=== PATIENT | male | born 1945 | race Caucasian/White ===

== ENCOUNTER 2017-08-09 13:43 | Inpatient (IN) | payer MEDICARE, BC ==
[~2017-08-09] VITALS: Ht 188 cm; Wt 105.5 kg
[2017-08-09 16:02] LABS: BASOPHILS ABSOLUTE AUTO 0.03 K/mm3 (0.00-0.23); BASOPHILS PERCENT AUTO 0 % (0-2); EOSINOPHILS ABSOLUTE AUTO 0.06 K/mm3 (0.00-0.68); EOSINOPHILS PERCENT AUTO 1 % (0-6); Hematocrit 39.4 % (37.0-53.0); Hemoglobin 12.6 g/dL (13.5-17.5); IMMATURE GRAN ABSOLUTE AUTO 0.07 K/mm3 (0.00-0.10); IMMATURE GRAN PERCENT AUTO 1 % (0-1); LYMPHOCYTES ABSOLUTE AUTO 2.29 K/mm3 (0.84-5.20); LYMPHOCYTES PERCENT AUTO 21 % (21-46); MONOCYTES ABSOLUTE AUTO 0.61 K/mm3 (0.16-1.47); MONOCYTES PERCENT AUTO 6 % (4-13); Mean Corpuscular HGB 29.1 pg (26.0-34.0); Mean Corpuscular Volume 91 fL (80-100); Mean Platelet Volume 9.8 fL (9.1-12.4); NEUTROPHILS ABSOLUTE AUTO 7.76 K/mm3 (1.96-9.15); NEUTROPHILS PERCENT AUTO 72 % (41-73); Platelet Count 165 K/mm3 (150-400); RDW Coefficient Variation 14.7 % (11.7-14.2); RDW Standard Deviation 49.6 fL (35.1-46.3); Red Blood Cell Count 4.33 M/mm3 (4.30-5.90); White Blood Cell Count 10.82 K/mm3 (4.00-11.30)
[2017-08-09] MEDS ORDERED: RAMI2.5 PO (16:06)
[2017-08-09] MEDS ORDERED: Jantoven6 MG PO (16:06)
[2017-08-09] MEDS ORDERED: GLIP5ER PO (16:06)
[2017-08-09] MEDS ORDERED: Prozac20 MG (16:07)
[2017-08-09] MEDS ORDERED: Zyprexa10 MG PO (16:07)
[2017-08-09] MEDS ORDERED: METF500 PO (16:07)
[2017-08-09] MEDS ORDERED: ATOR80 PO (16:07)
[2017-08-09] MEDS ORDERED: LORA1 PO (16:07)
[2017-08-09] MEDS ORDERED: METO50ER PO (16:08)
[2017-08-09 16:19] LABS: Alanine Aminotransfer (ALT/SGP 27 U/L (12-78); Albumin, Blood 3.3 g/dL (3.4-5.0); Albumin/Globulin Ratio 0.8 (0.8-1.8); Alk Phos 100 U/L (50-136); Anion Gap 4 mmol/L (6-16); Aspartate Aminotrans (AST/SGOT 16 U/L (12-37); Bilirubin, Total 0.5 mg/dL (0.1-1.0); Blood Urea Nitrogen 21 mg/dL (8-24); Bun/Creatinine Ratio 20.4 (12.0-20.0); CO2, Blood 28 mmol/L (21-32); Calcium, Blood 8.7 mg/dL (8.5-10.1); Chloride, Blood 101 mmol/L (98-108); Creatinine, Blood 1.03 mg/dL (0.60-1.20); Glomerular Filtration Rate >60 (60-); Glucose, Blood 116 mg/dL (70-99); Potassium, Blood 4.6 mmol/L (3.5-5.5); Sodium, Blood 133 mmol/L (136-145); Total Protein, Blood 7.3 g/dL (6.4-8.2); Troponin I <0.015 ng/mL (0.000-0.040)
[2017-08-09 16:34] LABS: International Normalized Ratio 2.34
[2017-08-10 06:19] LABS: International Normalized Ratio 2.15; Prothrombin Time Results 22.9 Sec (9.7-11.5)
[2017-08-11 05:02] LABS: BASOPHILS ABSOLUTE AUTO 0.01 K/mm3 (0.00-0.23); BASOPHILS PERCENT AUTO 0 % (0-2); EOSINOPHILS PERCENT AUTO 0 % (0-6); IMMATURE GRAN PERCENT AUTO 1 % (0-1); LYMPHOCYTES ABSOLUTE AUTO 1.17 K/mm3 (0.84-5.20); LYMPHOCYTES PERCENT AUTO 8 % (21-46); MONOCYTES ABSOLUTE AUTO 0.34 K/mm3 (0.16-1.47); MONOCYTES PERCENT AUTO 2 % (4-13); Mean Corpuscular HGB 28.6 pg (26.0-34.0); Mean Corpuscular HGB Conc 31.7 g/dL (31.5-36.5); Mean Corpuscular Volume 90 fL (80-100); Mean Platelet Volume 10.2 fL (9.1-12.4); NEUTROPHILS ABSOLUTE AUTO 13.74 K/mm3 (1.96-9.15); NEUTROPHILS PERCENT AUTO 89 % (41-73); Platelet Count 167 K/mm3 (150-400); RDW Coefficient Variation 15.1 % (11.7-14.2); RDW Standard Deviation 49.1 fL (35.1-46.3); Red Blood Cell Count 4.55 M/mm3 (4.30-5.90); White Blood Cell Count 15.36 K/mm3 (4.00-11.30)
[2017-08-11 05:17] LABS: International Normalized Ratio 1.91; Prothrombin Time Results 20.3 Sec (9.7-11.5)
[2017-08-11 05:21] LABS: Alanine Aminotransfer (ALT/SGP 27 U/L (12-78); Albumin, Blood 3.3 g/dL (3.4-5.0); Albumin/Globulin Ratio 0.8 (0.8-1.8); Alk Phos 92 U/L (50-136); Anion Gap 5 mmol/L (6-16); Aspartate Aminotrans (AST/SGOT 18 U/L (12-37); Bilirubin, Total 0.3 mg/dL (0.1-1.0); Blood Urea Nitrogen 42 mg/dL (8-24); Bun/Creatinine Ratio 34.1 (12.0-20.0); CO2, Blood 28 mmol/L (21-32); Calcium, Blood 8.8 mg/dL (8.5-10.1); Chloride, Blood 101 mmol/L (98-108); Creatinine, Blood 1.23 mg/dL (0.60-1.20); Globulin, Blood 4.1 g/dL (2.2-4.0); Glomerular Filtration Rate >60 (60-); Glucose, Blood 241 mg/dL (70-99); Potassium, Blood 4.7 mmol/L (3.5-5.5); Sodium, Blood 134 mmol/L (136-145); Total Protein, Blood 7.4 g/dL (6.4-8.2)
[2017-08-12 04:40] LABS: BASOPHILS ABSOLUTE AUTO 0.02 K/mm3 (0.00-0.23); BASOPHILS PERCENT AUTO 0 % (0-2); EOSINOPHILS PERCENT AUTO 0 % (0-6); Hematocrit 37.6 % (37.0-53.0); Hemoglobin 11.9 g/dL (13.5-17.5); IMMATURE GRAN ABSOLUTE AUTO 0.12 K/mm3 (0.00-0.10); IMMATURE GRAN PERCENT AUTO 1 % (0-1); LYMPHOCYTES ABSOLUTE AUTO 2.02 K/mm3 (0.84-5.20); LYMPHOCYTES PERCENT AUTO 13 % (21-46); MONOCYTES PERCENT AUTO 7 % (4-13); Mean Corpuscular HGB 28.7 pg (26.0-34.0); Mean Corpuscular HGB Conc 31.6 g/dL (31.5-36.5); Mean Corpuscular Volume 91 fL (80-100); Mean Platelet Volume 9.8 fL (9.1-12.4); NEUTROPHILS PERCENT AUTO 79 % (41-73); Platelet Count 136 K/mm3 (150-400); RDW Coefficient Variation 14.9 % (11.7-14.2); RDW Standard Deviation 49.4 fL (35.1-46.3); Red Blood Cell Count 4.15 M/mm3 (4.30-5.90); White Blood Cell Count 15.36 K/mm3 (4.00-11.30)
[2017-08-12 04:51] LABS: International Normalized Ratio 1.46; Prothrombin Time Results 15.4 Sec (9.7-11.5)
[2017-08-12 04:55] LABS: Bun/Creatinine Ratio 36.6 (12.0-20.0); Calcium, Blood 8.3 mg/dL (8.5-10.1); Creatinine, Blood 1.34 mg/dL (0.60-1.20); Potassium, Blood 4.5 mmol/L (3.5-5.5)
[2017-08-13 04:52] LABS: BASOPHILS ABSOLUTE AUTO 0.02 K/mm3 (0.00-0.23); BASOPHILS PERCENT AUTO 0 % (0-2); EOSINOPHILS ABSOLUTE AUTO 0.05 K/mm3 (0.00-0.68); EOSINOPHILS PERCENT AUTO 0 % (0-6); Hematocrit 40.2 % (37.0-53.0); Hemoglobin 12.6 g/dL (13.5-17.5); IMMATURE GRAN ABSOLUTE AUTO 0.09 K/mm3 (0.00-0.10); IMMATURE GRAN PERCENT AUTO 1 % (0-1); LYMPHOCYTES ABSOLUTE AUTO 3.12 K/mm3 (0.84-5.20); LYMPHOCYTES PERCENT AUTO 28 % (21-46); MONOCYTES ABSOLUTE AUTO 1.03 K/mm3 (0.16-1.47); MONOCYTES PERCENT AUTO 9 % (4-13); Mean Corpuscular HGB 28.8 pg (26.0-34.0); Mean Corpuscular HGB Conc 31.3 g/dL (31.5-36.5); Mean Corpuscular Volume 92 fL (80-100); Mean Platelet Volume 10.1 fL (9.1-12.4); NEUTROPHILS ABSOLUTE AUTO 7.05 K/mm3 (1.96-9.15); NEUTROPHILS PERCENT AUTO 62 % (41-73); Platelet Count 132 K/mm3 (150-400); RDW Coefficient Variation 14.9 % (11.7-14.2); RDW Standard Deviation 50.7 fL (35.1-46.3); Red Blood Cell Count 4.37 M/mm3 (4.30-5.90); White Blood Cell Count 11.36 K/mm3 (4.00-11.30)
[2017-08-13 05:03] LABS: International Normalized Ratio 1.71; Prothrombin Time Results 18.1 Sec (9.7-11.5)
[2017-08-13 05:09] LABS: Albumin, Blood 2.9 g/dL (3.4-5.0); Albumin/Globulin Ratio 0.8 (0.8-1.8); Bilirubin, Total 0.4 mg/dL (0.1-1.0); Bun/Creatinine Ratio 38.7 (12.0-20.0); Calcium, Blood 8.5 mg/dL (8.5-10.1); Creatinine, Blood 1.5 mg/dL (0.60-1.20); Globulin, Blood 3.6 g/dL (2.2-4.0); Potassium, Blood 4.4 mmol/L (3.5-5.5); Total Protein, Blood 6.5 g/dL (6.4-8.2)
[2017-08-14 05:32] LABS: International Normalized Ratio 1.92; Prothrombin Time Results 20.4 Sec (9.7-11.5)
[2017-08-14 05:40] LABS: Bun/Creatinine Ratio 40.9 (12.0-20.0); Calcium, Blood 8.9 mg/dL (8.5-10.1); Creatinine, Blood 1.54 mg/dL (0.60-1.20); Potassium, Blood 4.5 mmol/L (3.5-5.5)
[2017-08-14] MEDS ORDERED: Micro-K10 MEQ PO (09:46)
[2017-08-14] MEDS ORDERED: FURO20 PO (09:46)
[2018-03-11] MEDS ORDERED: Melatonin5 M1 PO (11:58)
[2018-03-11] MEDS ORDERED: PREG100 PO (15:25)
== END 2017-08-14 11:11 | disposition home health service (06) | DRG 291 ==
LOC: ER 13:43 → MEDS 19:34 → ER 20:25 → MEDS 20:30 → ENPENDDIS 08-14 10:00 → MEDS 08-14 11:11
PROVIDERS: Emergency Medicine; Internal Medicine
PROC: 3E0234Z Introduction of Serum, Toxoid and Vaccine into Muscle, Percutaneous Approach (ICD-10-PCS; principal; 2017-08-10)
DX: I50.33 Acute on chronic diastolic (congestive) heart failure (principal); J96.01 Acute respiratory failure with hypoxia; J44.1 Chronic obstructive pulmonary disease with (acute) exacerbation; Z23 Encounter for immunization; E11.9 Type 2 diabetes mellitus without complications; I25.10 Atherosclerotic heart disease of native coronary artery without angina pectoris; E66.9 Obesity, unspecified; G47.33 Obstructive sleep apnea (adult) (pediatric); F17.210 Nicotine dependence, cigarettes, uncomplicated; Z95.1 Presence of aortocoronary bypass graft; I25.2 Old myocardial infarction; Z85.828 Personal history of other malignant neoplasm of skin; Z88.8 Allergy status to other drugs, medicaments and biological substances; Z91.041 Radiographic dye allergy status; Z99.81 Dependence on supplemental oxygen; Z79.01 Long term (current) use of anticoagulants; Z79.84 Long term (current) use of oral hypoglycemic drugs; Z79.899 Other long term (current) drug therapy; Z68.28 Body mass index [BMI] 28.0-28.9, adult
CPT/HCPCS: 36415; 70450; 71046; 80048; 80053; 82947; 83036; 83880; 84484; 85025; 85610; 85730; 93005; 93010; 93306; 94640; 94762; 96374; 96375; 97110; 97116; 97162; 97530; 99285; G0008; G8978; G8979; J1940; J2930; J7626; Q2038

== ENCOUNTER → 2017-08-16 | Outpatient (CLI) | payer MEDICARE, BC ==
[~2017-08-16] MED LIST: ATOR80 PO; FURO20 PO; GLIP5ER PO; Jantoven6 MG PO; LORA1 PO; METF500 PO; METO50ER PO; Melatonin5 M1 PO; Micro-K10 MEQ PO; PREG100 PO; Prozac20 MG; RAMI2.5 PO; Zyprexa10 MG PO
== END | disposition home or self-care (01) ==
LOC: OLS 13:28
DX: R19.7 Diarrhea, unspecified (principal)
CPT/HCPCS: 87493

== ENCOUNTER → 2017-08-23 | Outpatient (CLI) | payer MEDICARE, BC ==
[~2017-08-23] MED LIST changes: -Melatonin5 M1 PO; -PREG100 PO
[2017-08-23 15:25] LABS: International Normalized Ratio 1.4; Prothrombin Time Results 14.7 Sec (9.7-11.5)
== END ==
LOC: LAB HH 14:22
PROVIDERS: Family Medicine
DX: I48.91 Unspecified atrial fibrillation (principal)
CPT/HCPCS: 85610

== ENCOUNTER → 2018-07-29 | Outpatient (CLI) | payer MEDICARE, BC ==
[~2018-07-29] MED LIST changes: +Melatonin5 M1 PO; +PREG100 PO
[2018-07-29 17:15] LABS: BASOPHILS ABSOLUTE AUTO 0.04 K/mm3 (0.00-0.23); BASOPHILS PERCENT AUTO 1 % (0-2); EOSINOPHILS ABSOLUTE AUTO 0.13 K/mm3 (0.00-0.68); EOSINOPHILS PERCENT AUTO 2 % (0-6); Hematocrit 41.3 % (37.0-53.0); Hemoglobin 13.2 g/dL (13.5-17.5); IMMATURE GRAN ABSOLUTE AUTO 0.03 K/mm3 (0.00-0.10); IMMATURE GRAN PERCENT AUTO 0 % (0-1); LYMPHOCYTES ABSOLUTE AUTO 2.62 K/mm3 (0.84-5.20); LYMPHOCYTES PERCENT AUTO 37 % (21-46); MONOCYTES ABSOLUTE AUTO 0.43 K/mm3 (0.16-1.47); MONOCYTES PERCENT AUTO 6 % (4-13); Mean Corpuscular HGB 29.3 pg (26.0-34.0); Mean Corpuscular Volume 92 fL (80-100); Mean Platelet Volume 9.6 fL (9.1-12.4); NEUTROPHILS PERCENT AUTO 55 % (41-73); Platelet Count 163 K/mm3 (150-400); RDW Coefficient Variation 16.5 % (11.7-14.2); RDW Standard Deviation 55.7 fL (35.1-46.3); White Blood Cell Count 7.15 K/mm3 (4.00-11.30)
[2018-07-29 17:33] LABS: Alanine Aminotransfer (ALT/SGP 32 U/L (12-78); Albumin, Blood 3.1 g/dL (3.4-5.0); Albumin/Globulin Ratio 0.8 (0.8-1.8); Alk Phos 171 U/L (50-136); Anion Gap 7 mmol/L (6-16); Aspartate Aminotrans (AST/SGOT 13 U/L (12-37); Bilirubin, Total 0.3 mg/dL (0.1-1.0); Blood Urea Nitrogen 17 mg/dL (8-24); Bun/Creatinine Ratio 20.3 (12.0-20.0); CO2, Blood 27 mmol/L (21-32); Calcium, Blood 8.2 mg/dL (8.5-10.1); Chloride, Blood 100 mmol/L (98-108); Creatinine, Blood 0.84 mg/dL (0.60-1.20); Globulin, Blood 4.1 g/dL (2.2-4.0); Glomerular Filtration Rate >60 (60-); Glucose, Blood 276 mg/dL (70-99); Potassium, Blood 3.5 mmol/L (3.5-5.5); Sodium, Blood 134 mmol/L (136-145); Total Protein, Blood 7.2 g/dL (6.4-8.2)
== END | disposition home or self-care (01) ==
LOC: LAB HH 16:26
PROVIDERS: Family Medicine
DX: S32.002A Unstable burst fracture of unspecified lumbar vertebra, initial encounter for closed fracture (principal); M48.061 Spinal stenosis, lumbar region without neurogenic claudication; E11.65 Type 2 diabetes mellitus with hyperglycemia; Z85.820 Personal history of malignant melanoma of skin
CPT/HCPCS: 80053; 83036; 85025

== ENCOUNTER 2020-07-01 19:28 | Emergency (ER) | payer MEDICARE, BC ==
[~2020-07-01] VITALS: Ht 182.9 cm; Wt 90.7 kg
[~2020-07-01 19:28] MED LIST changes: +BASAGLAR K100 UNIT/1 SC; +DOCU100 PO; +FISH OIL 1,0001 EAC2 PO; +FLAX PO; +FURO40; +Fosamax70 MG PO; +GLIM2 PO; +GLIP10ER PO; +KONSYL0.52 GM PO; +Lipitor80 MG PO; +MELATONIN5 M1 PO; +METO50 PO; +Multiple Vitam1 EAC1 PO; +NOVOLOG FL100 UNIT/3 SC; +Nitrostat0.4 MG SL; +OLAN5 PO; +Omega 3 1,0001 EACH PO; +POTA10T PO; +PREG100; +Prozac40 MG PO; +WARF5 PO
[2020-07-01 20:11] LABS: BASOPHILS ABSOLUTE AUTO 0.04 K/mm3 (0.00-0.23); BASOPHILS PERCENT AUTO 0 % (0-2); EOSINOPHILS ABSOLUTE AUTO 0.09 K/mm3 (0.00-0.68); EOSINOPHILS PERCENT AUTO 1 % (0-6); Hematocrit 40.5 % (37.0-53.0); Hemoglobin 12.8 g/dL (13.5-17.5); IMMATURE GRAN ABSOLUTE AUTO 0.04 K/mm3 (0.00-0.10); IMMATURE GRAN PERCENT AUTO 0 % (0-1); LYMPHOCYTES ABSOLUTE AUTO 3.41 K/mm3 (0.84-5.20); LYMPHOCYTES PERCENT AUTO 30 % (21-46); MONOCYTES PERCENT AUTO 6 % (4-13); Mean Corpuscular HGB 28.7 pg (26.0-34.0); Mean Corpuscular HGB Conc 31.6 g/dL (31.5-36.5); Mean Corpuscular Volume 91 fL (80-100); Mean Platelet Volume 11.1 fL (9.1-12.4); NEUTROPHILS ABSOLUTE AUTO 6.95 K/mm3 (1.96-9.15); NEUTROPHILS PERCENT AUTO 62 % (41-73); Platelet Count 182 K/mm3 (150-400); RDW Coefficient Variation 15.5 % (11.7-14.2); Red Blood Cell Count 4.46 M/mm3 (4.30-5.90); White Blood Cell Count 11.23 K/mm3 (4.00-11.30)
[2020-07-01 20:26] LABS: Alanine Aminotransfer (ALT/SGP 46 U/L (12-78); Albumin, Blood 3.4 g/dL (3.4-5.0); Albumin/Globulin Ratio 0.8 (0.8-1.8); Alk Phos 112 U/L (50-136); Anion Gap 4 mmol/L (6-16); Aspartate Aminotrans (AST/SGOT 41 U/L (12-37); Bilirubin, Total 0.4 mg/dL (0.1-1.0); Blood Urea Nitrogen 14 mg/dL (8-24); Bun/Creatinine Ratio 14.1 (12.0-20.0); CO2, Blood 31 mmol/L (21-32); Calcium, Blood 8.5 mg/dL (8.5-10.1); Chloride, Blood 105 mmol/L (98-108); Creatinine, Blood 0.99 mg/dL (0.60-1.20); Globulin, Blood 4.4 g/dL (2.2-4.0); Glomerular Filtration Rate >60 (60-); Glucose, Blood 61 mg/dL (70-99); Potassium, Blood 3.5 mmol/L (3.5-5.5); Sodium, Blood 140 mmol/L (136-145); Total Protein, Blood 7.8 g/dL (6.4-8.2); Troponin I <0.015 ng/mL (0.000-0.040)
== END 2020-07-01 22:53 | disposition home or self-care (01) ==
LOC: ER 19:28
PROVIDERS: Physician Assistant
DX: I50.9 Heart failure, unspecified (principal); E11.649 Type 2 diabetes mellitus with hypoglycemia without coma; I48.91 Unspecified atrial fibrillation; Z79.4 Long term (current) use of insulin; Z79.899 Other long term (current) drug therapy; Z79.01 Long term (current) use of anticoagulants; Z91.041 Radiographic dye allergy status; Z88.1 Allergy status to other antibiotic agents; Z95.1 Presence of aortocoronary bypass graft; Z87.891 Personal history of nicotine dependence
CPT/HCPCS: 71045; 80053; 82947; 83880; 84484; 85025; 93005; 93010; 99285-25; J1940

== ENCOUNTER 2020-07-14 14:16 | Inpatient (IN) | payer MEDICARE, BC ==
[~2020-07-14] VITALS: Ht 188 cm; Wt 95.8 kg
[2020-07-14 14:45] LABS: BASOPHILS ABSOLUTE AUTO 0.03 K/mm3 (0.00-0.23); BASOPHILS PERCENT AUTO 0 % (0-2); EOSINOPHILS ABSOLUTE AUTO 0.09 K/mm3 (0.00-0.68); EOSINOPHILS PERCENT AUTO 1 % (0-6); Hematocrit 38.7 % (37.0-53.0); Hemoglobin 11.9 g/dL (13.5-17.5); IMMATURE GRAN ABSOLUTE AUTO 0.02 K/mm3 (0.00-0.10); IMMATURE GRAN PERCENT AUTO 0 % (0-1); LYMPHOCYTES ABSOLUTE AUTO 1.32 K/mm3 (0.84-5.20); LYMPHOCYTES PERCENT AUTO 18 % (21-46); MONOCYTES ABSOLUTE AUTO 0.36 K/mm3 (0.16-1.47); MONOCYTES PERCENT AUTO 5 % (4-13); Mean Corpuscular HGB 29.6 pg (26.0-34.0); Mean Corpuscular HGB Conc 30.7 g/dL (31.5-36.5); Mean Corpuscular Volume 96 fL (80-100); Mean Platelet Volume 10.6 fL (9.1-12.4); NEUTROPHILS ABSOLUTE AUTO 5.65 K/mm3 (1.96-9.15); NEUTROPHILS PERCENT AUTO 76 % (41-73); Platelet Count 131 K/mm3 (150-400); RDW Coefficient Variation 15.7 % (11.7-14.2); RDW Standard Deviation 55.3 fL (35.1-46.3); Red Blood Cell Count 4.02 M/mm3 (4.30-5.90); White Blood Cell Count 7.47 K/mm3 (4.00-11.30)
[2020-07-14 14:57] LABS: Alanine Aminotransfer (ALT/SGP 38 U/L (12-78); Albumin, Blood 3.1 g/dL (3.4-5.0); Albumin/Globulin Ratio 0.7 (0.8-1.8); Alk Phos 108 U/L (50-136); Anion Gap 4 mmol/L (6-16); Aspartate Aminotrans (AST/SGOT 20 U/L (12-37); Bilirubin, Total 0.4 mg/dL (0.1-1.0); Blood Urea Nitrogen 15 mg/dL (8-24); Bun/Creatinine Ratio 15.2 (12.0-20.0); CO2, Blood 28 mmol/L (21-32); Calcium, Blood 8.2 mg/dL (8.5-10.1); Chloride, Blood 105 mmol/L (98-108); Creatinine, Blood 0.99 mg/dL (0.60-1.20); Globulin, Blood 4.4 g/dL (2.2-4.0); Glomerular Filtration Rate >60 (60-); Glucose, Blood 202 mg/dL (70-99); Potassium, Blood 4.9 mmol/L (3.5-5.5); Sodium, Blood 137 mmol/L (136-145); Total Protein, Blood 7.5 g/dL (6.4-8.2); Troponin I <0.015 ng/mL (0.000-0.040)
[2020-07-14] MEDS ORDERED: STIOLTO RESPIMAT4 G1 INH (16:21)
[2020-07-14] MEDS ORDERED: METOPROLOL TART50 M2 PO (16:22)
[2020-07-14] MEDS ORDERED: LOSARTAN POTASS50 M1 PO (16:22)
[2020-07-14] MEDS ORDERED: LANTUS SOL100 UNIT/1 SC (16:22)
[2020-07-14] MEDS ORDERED: XARELTO20 M1 PO (16:22)
[2020-07-14] MEDS ORDERED: PROZAC20 M3 PO (16:23)
[2020-07-14] MEDS ORDERED: PREGABALIN100 MG PO (16:23)
[2020-07-14] MEDS ORDERED: LIPITOR80 MG PO (16:23)
[2020-07-14] MEDS ORDERED: KLOR-CON 1010 ME1 PO (16:23)
[2020-07-14] MEDS ORDERED: OLANZAPINE5 M1 PO (16:23)
[2020-07-14] MEDS ORDERED: FUROSEMIDE40 MG PO (16:24)
--- NOTE | 2020-07-14 19:31 | NUR ---
new er admit approx 1815 PT ARRIVE TO VIA GURNEY, ABLE TO TRANSFER TO CHAIR SBA. STATE CONTINUING SHORTNESS OF BREATH HOWEVER MUCH IMPROVED FOLLOWING ER TX-LASIX. LUNGS ARE COARSE, DECREASED, BIOX 94% 3L O2, PT STATE THIS IS HOME DOSE. HR IRREG, 70-80 HX AFIB. KASSI RN WILL PLACE TELE. 2+ BLE EDEMA NOTED. DRSG RLE NOTED, PT STATE HE WENT TO PCP TODAY TO HAVE DRSG CHANGED HOWEVER THEY SENT HIM TO ER D/T SOB. DX CHF, BNP 289. HE VOIDED 350 ML CLEAR YELLOW URINE ON ARRIVAL TO . KASSI RN WILL OBTAIN BED WT. ADA/CARDIAC DIET CLARIFIED w DR LAWSON, DINNER TRAY ORDERED. PHARMACY CALL TO STATE NEED CLARIFICATION ON INSULIN ORDERS, KASSI RN NOTIFIED, WILL CONTACT DR. DALTON @ THIS TIME 125. VSS.
[2020-07-14] MEDS ORDERED: ALBU90OI INH (21:55)
[2020-07-14] MEDS ORDERED: TRIA15CR3 TOP (21:56)
[2020-07-14 22:54] LABS: CPK Creatine Kinase 95 U/L (39-308); Troponin I <0.015 ng/mL (0.000-0.040)
--- NOTE | 2020-07-15 06:10 | NUR ---
PIANO PLAYER SUMMARY NEW ADMIT FROM THE ER JUST PRIOR TO START OF SHIFT. PT ADMITTED FOR CHF EXACERBATION. AAOX4 AND STANDBY ASSIST WHEN OOB. DIURESING WITH IV LASIX, GOOD FLUID OUTPUT NOTED. SOME 2+ PITTING EDEMA IN BLE HOWEVER PT STATES HE CAN ALREADY SEE AND FEEL A BIG IMPROVEMENT IN THE SWELLING. ON 3L O2 VIA NC WHICH PT STATES IS HIS BASELINE DOSE. USING CPAP AT NIGHT WITH 3L BLEED IN. PT STATES HE NORMALLY DOES NOT USE A CPAP AT HOME, JUST NASAL CANULA.PT O2 SATS MOSTLY LOW TO MID 90'S BUT DOES DROP TO HIGH 80'S AT TIMES BECAUSE PT LIKES TO SLEEP SITTING UP WITH HEAD TILTED FORWARD AND CHIN TUCKED TO CHEST. OTHER VSS, WILL CONTINUE TO MONITOR.
[2020-07-15 06:45] LABS: BASOPHILS ABSOLUTE AUTO 0.03 K/mm3 (0.00-0.23); BASOPHILS PERCENT AUTO 0 % (0-2); EOSINOPHILS ABSOLUTE AUTO 0.19 K/mm3 (0.00-0.68); EOSINOPHILS PERCENT AUTO 2 % (0-6); Hematocrit 40.2 % (37.0-53.0); Hemoglobin 12.4 g/dL (13.5-17.5); IMMATURE GRAN ABSOLUTE AUTO 0.03 K/mm3 (0.00-0.10); IMMATURE GRAN PERCENT AUTO 0 % (0-1); LYMPHOCYTES ABSOLUTE AUTO 2.21 K/mm3 (0.84-5.20); LYMPHOCYTES PERCENT AUTO 27 % (21-46); MONOCYTES ABSOLUTE AUTO 0.51 K/mm3 (0.16-1.47); MONOCYTES PERCENT AUTO 6 % (4-13); Mean Corpuscular HGB 29.4 pg (26.0-34.0); Mean Corpuscular HGB Conc 30.8 g/dL (31.5-36.5); Mean Corpuscular Volume 95 fL (80-100); NEUTROPHILS ABSOLUTE AUTO 5.22 K/mm3 (1.96-9.15); NEUTROPHILS PERCENT AUTO 64 % (41-73); Platelet Count 143 K/mm3 (150-400); RDW Coefficient Variation 15.9 % (11.7-14.2); RDW Standard Deviation 55.1 fL (35.1-46.3); Red Blood Cell Count 4.22 M/mm3 (4.30-5.90); White Blood Cell Count 8.19 K/mm3 (4.00-11.30)
[2020-07-15 06:53] LABS: Alanine Aminotransfer (ALT/SGP 35 U/L (12-78); Albumin, Blood 3.3 g/dL (3.4-5.0); Albumin/Globulin Ratio 0.8 (0.8-1.8); Alk Phos 110 U/L (50-136); Anion Gap 2 mmol/L (6-16); Aspartate Aminotrans (AST/SGOT 24 U/L (12-37); Bilirubin, Total 0.5 mg/dL (0.1-1.0); Blood Urea Nitrogen 13 mg/dL (8-24); Bun/Creatinine Ratio 12.9 (12.0-20.0); CO2, Blood 36 mmol/L (21-32); CPK Creatine Kinase 266 U/L (39-308); Calcium, Blood 8.4 mg/dL (8.5-10.1); Chloride, Blood 102 mmol/L (98-108); Creatinine, Blood 1.01 mg/dL (0.60-1.20); Globulin, Blood 4.3 g/dL (2.2-4.0); Glomerular Filtration Rate >60 (60-); Glucose, Blood 78 mg/dL (70-99); Potassium, Blood 4.2 mmol/L (3.5-5.5); Sodium, Blood 140 mmol/L (136-145); Total Protein, Blood 7.6 g/dL (6.4-8.2); Troponin I <0.015 ng/mL (0.000-0.040)
--- NOTE | 2020-07-15 17:26 | NUR ---
SUMMARY PT IS A/O X4, PLEASANT/COOPERATIVE AFFECT. HE IS UP TO BR/CHAIR SBA. DX CHF. HE STATE SHORTNESS OF BREATH CONTINUES TO IMPROVE, STATE FEELING MUCH BETTER TODAY. HE HAS BEEN ON RA T/O DAY, BIOX 93-98%, LUNGS SEEM CLEAR/DECREASED. BLE EDEMA APPROX 2+ CONTINUES, IV LASIX 40MG BIB CONTINUES. HR 70'S, AFIB/TELE, HX CHR AFIB, HE IS ON XARELTO. BP ELEVATED THIS AM HOWEVER IMPROVED T/O DAY, VSS.
[2020-07-16 05:23] LABS: Hematocrit 39.9 % (37.0-53.0); Hemoglobin 12.5 g/dL (13.5-17.5); Mean Corpuscular HGB 29.1 pg (26.0-34.0); Mean Corpuscular HGB Conc 31.3 g/dL (31.5-36.5); Mean Corpuscular Volume 93 fL (80-100); Mean Platelet Volume 10.4 fL (9.1-12.4); Platelet Count 146 K/mm3 (150-400); RDW Coefficient Variation 15.9 % (11.7-14.2); RDW Standard Deviation 53.8 fL (35.1-46.3); Red Blood Cell Count 4.29 M/mm3 (4.30-5.90); White Blood Cell Count 10.17 K/mm3 (4.00-11.30)
[2020-07-16 06:13] LABS: Anion Gap 8 mmol/L (6-16); Blood Urea Nitrogen 21 mg/dL (8-24); Bun/Creatinine Ratio 18.6 (12.0-20.0); CO2, Blood 30 mmol/L (21-32); Calcium, Blood 8.7 mg/dL (8.5-10.1); Chloride, Blood 97 mmol/L (98-108); Creatinine, Blood 1.13 mg/dL (0.60-1.20); Glomerular Filtration Rate >60 (60-); Glucose, Blood 60 mg/dL (70-99); Potassium, Blood 3.5 mmol/L (3.5-5.5); Sodium, Blood 135 mmol/L (136-145)
--- NOTE | 2020-07-16 06:41 | NUR ---
SHIFT SUMMARY PT IS A 74 Y/O MALE, ADMITTED FOR CHF. PT WAS VERY CONFUSED THROUGH THE NIGHT, A&O X SELF ONLY, CONTINUOUSLY PULLING OFF HIS BIOX FINGER PROBE, TELE MONITOR AND O2, AND MOVING MULTIPLE TIMES BETWEEN THE BED AND HIS CHAIR. THIS AM, PT BEGAN WANDERING INTO THE HALLWAYS. EASILY REDIRECTABLE. PT HAS BEEN ON 3L VIA NC, SATTING > 90%. VITAL SIGNS STABLE. TELE SHOWED AFIB IN TH 70S. NO C/O PAIN, NAUSEA OR SOB. PT REFUSED HIS CPAP DURING THE NIGHT. NO OTHER ACUTE CHANGES IN PT CONDITION NOTED. WILL CONTINUE TO MONITOR AND TREAT PER EMAR UNTIL HAND OFF TO DAY SHIFT RN.
--- NOTE | 2020-07-16 08:19 | NUR ---
PT BLOOD GLUCOSE PT IS DROWSY THIS AM BUT AROUSABLE. THIS RN CHECKED PT CBG WHICH WAS NOTED TO BE 59. THIS RN PROVIDED PT WITH 4 OZ OF APPLE JUICE AND PHYSICIAN IS AWARE OF CBG. THIS RN WILL REASSESS PT'S CBG AND CONTINUE TO MONITOR PT STATUS.
--- NOTE | 2020-07-16 08:25 | NUR ---
PT BLOOD GLUCOSE PT IS AO TO SELF BUT STATES HE IS CONFUSED. PT IS NPO STATUS THIS AM FOR PROCEDURE. THIS RN CHECKED PT CBG WHICH WAS NOTED TO BE 63. THIS RN CALLED DR. WEI AND NOTIFIED ABOUT THE CBG. THIS RN RECEIVED ORDERS TO CONTINUE TO MONITOR PT STATUS AND CBG.
--- NOTE | 2020-07-16 18:46 | NUR ---
SHIFT SUMMARY PT IS AOX2-3 THIS TERESA. PT EXHIBITED CONFUSION THIS AM, BUT THAT HAS SINCE CLEARED. PT DENIES PAIN, N/V, SOB. PT IS SBA IN ROOM. PT RIGHT LEG WOUND MEPILIEX IS C/D/I. PT'S SISTER VISITED THIS TERESA. PT IS IN BED, CALL LIGHT IN REACH, LOW POSITION.
--- NOTE | 2020-07-16 19:25 | NUR ---
ASSUMED CARE RECEIVED REPORT FROM KASIA MARTINEZ. PT RESTING COMFORTABLY, IN NO ACUTE DISTRESS. NO ACUTE NEEDS ASSESSED AT THIS TIME. CALL LIGHT, POSSESSIONS IN REACH, BED IN LOW POSITION.CONTINUE TO MONITOR.
--- NOTE | 2020-07-17 01:15 | NUR ---
THIS RN IN PT ROOM, PT REPORTING CHEST PRESSURE LASTING FOR APPROXIMATELY 15-20 MINUTES. VS OBTAINED, WNL. PT REPORTS SOB, STATES IT IMPROVES WHEN HE SITS UP. RESPS E/U. PCU PER DIEM PHYSICAL THERAPIST REPORTING AFIB AVERAGING IN THE 60'S. CONTINUE TO MONITOR.
[2020-07-17 06:49] LABS: Bun/Creatinine Ratio 18.3 (12.0-20.0); Calcium, Blood 8.4 mg/dL (8.5-10.1); Creatinine, Blood 1.26 mg/dL (0.60-1.20); Potassium, Blood 3.7 mmol/L (3.5-5.5)
--- NOTE | 2020-07-17 06:50 | NUR ---
GROUP ACTIVITIES AIDE SUMMARY PT RESTING COMFORTABLY, IN NO ACUTE DISTRESS. NO FURTHER C/O CHEST PRESSURE, STATES IT'S IMPROVED. VS REVIEWED, WNL. O2 SATS STABLE ON 3L/NC. INCREASINGLY CONFUSED THIS AM, REMOVING TELE LEADS; RE-ORIENTED TO SURROUNDINGS. SLEPT ON AND OFF THROUGHOUT NIGHT. NO FURTHER ACUTE CHANGES IN CONDITION NOTED. CALL LIGHT, POSSESSIONS IN REACH, BED IN LOW POSITION WITH ALARMS ON. REPORT GIVEN TO KASIA MARTINEZ.
--- NOTE | 2020-07-17 19:40 | NUR ---
SHIFT SUMMARY PT IS AOX2 TODAY. PT DENIES PAIN, N/V, SOB. PT IS SBA ASSIST FOR TRANSFERS. PT WILL POTENTIALLY DC TOMORROW. PT DID NOT HAVE VISITORS TODAY. PT IS IN BED, CALL LIGHT IN REACH, BED IN LOW POSITION.
--- NOTE | 2020-07-18 04:10 | NUR ---
SHIFT SUMMARY PATIENT HAD NO ACUTE CHANGES OBSERVED. AXOX 2-3 WITH CONFUSION AT TIMES. ONE ASSIST TO BSC. TAKES MEDICATION WHOLE WITH WATER. CBG 179. PIV REMAINS INTACT. FUDGE CANDY MAKER REPORTS A-FIB AVERAGE 52. ON 3L O2 NC. VSS/AFEBRILE. DENIES PAIN, SOB, AND N/V. CALL LIGHT IN REACH. BED IN LOWEST POSITION. WILL CONTINUE TO MONITOR UNTIL DAY SHIFT NURSE ASSUMES CARE.
[2020-07-18 05:34] LABS: Hematocrit 36.3 % (37.0-53.0); Hemoglobin 11.3 g/dL (13.5-17.5); Mean Corpuscular HGB 28.9 pg (26.0-34.0); Mean Corpuscular HGB Conc 31.1 g/dL (31.5-36.5); Mean Corpuscular Volume 93 fL (80-100); Mean Platelet Volume 10.6 fL (9.1-12.4); Platelet Count 110 K/mm3 (150-400); RDW Coefficient Variation 15.9 % (11.7-14.2); RDW Standard Deviation 53.3 fL (35.1-46.3); Red Blood Cell Count 3.91 M/mm3 (4.30-5.90); White Blood Cell Count 6.45 K/mm3 (4.00-11.30)
[2020-07-18 05:55] LABS: Anion Gap 3 mmol/L (6-16); Blood Urea Nitrogen 28 mg/dL (8-24); Bun/Creatinine Ratio 22.4 (12.0-20.0); CO2, Blood 33 mmol/L (21-32); Calcium, Blood 8.2 mg/dL (8.5-10.1); Chloride, Blood 100 mmol/L (98-108); Creatinine, Blood 1.25 mg/dL (0.60-1.20); Glomerular Filtration Rate >60 (60-); Glucose, Blood 121 mg/dL (70-99); Potassium, Blood 4.3 mmol/L (3.5-5.5); Sodium, Blood 136 mmol/L (136-145)
--- NOTE | 2020-07-18 15:08 | NUR ---
NOTIFIED BY [employer] THAT PATIENT IS SUSTAINING HEART RATE IN THE 40'S WITH OCCASIONAL DIPS TO LOW 38. BP 118/44. PATIENT REPORTS DIZZINESS AND BLACK IN FIELD OF VISION, PRIOR TO FALLING ASLEEP IN BED. HE IS NOW ASYMPTOMATIC, NO DIZZINESS, VISION WNL. DR OSBORN NOTIFIED. METOPROLOL DOSE DECREASED FROM 75 MG TO 25 MG BID.
--- NOTE | 2020-07-19 04:47 | NUR ---
SHIFT SUMMARY NO ACUTE CHANGES T/O SHIFT, A&Ox4, CALM AND COOPERATIVE WITH CARE. NO COMPLAINTS OF PAIN OR DISTRESS DURING SHIFT. PT ON 3 L/MIN VIA NC, THIS IS PT BASELINE. SATING 92-96% PER CONT PULSE OX. BRADYCARDIC T/O SHIFT. HELD PM DOSE OF LOPRESSOR PER PARAMETERS. PT SLEPT WELL THROUGH THE NIGHT, CALLED APPROPRIATELY TO USE THE RESTROOM. PT IS CURRENTLY SLEEPING AND APPEARS TO BE IN NO DISTRESS. POSSIBLE DISCHARGE TOMORROW.
[2020-07-19 06:17] LABS: Anion Gap 4 mmol/L (6-16); Blood Urea Nitrogen 30 mg/dL (8-24); Bun/Creatinine Ratio 25.9 (12.0-20.0); CO2, Blood 32 mmol/L (21-32); Calcium, Blood 8.5 mg/dL (8.5-10.1); Chloride, Blood 99 mmol/L (98-108); Creatinine, Blood 1.16 mg/dL (0.60-1.20); Glomerular Filtration Rate >60 (60-); Glucose, Blood 95 mg/dL (70-99); Magnesium, Blood 2.2 mg/dL (1.6-2.4); Potassium, Blood 4.7 mmol/L (3.5-5.5); Sodium, Blood 135 mmol/L (136-145)
[2020-07-19] MEDS ORDERED: SPIR25 PO (13:26)
--- NOTE | 2020-07-19 16:40 | NUR ---
Discharge Summary A/Ox4, pleasant and cooperative with care. SBA c FWW. Patient has been saturating >90% on RA at rest and with minimal activity. Ambulated x 1, tolerated well. Patient has been drinking lots of fluids (see I/O). Reviewed discharge paperwork with sister and patient. It appears blood sugars are not very well managed at home per sister as glucose tends to run 200-300's all the time. Also, patient consumes lots of fat/salt (deli meat, salami, canned goods, fast food, chips) at home. Extensive education provided to limit fat/salt intake, reading nutrition labels for sugar/salt, and low salt diet as well as replacements. Questions were answered and teaching had to be reiterated multiple times. Patient discharge to home with . Paperwork faxed to [facility], meds faxed to [facility]. IV removed, WNL. Personal belongings sent home. Escorted by SQL REPORT WRITER via w/c. Sister (Alecia) mentioned she had lost the previous correction scale and will need one printed. L/M for Alecia to return for staff to print a correction scale for her.
--- NOTE | 2020-07-19 19:04 | NUR ---
-UPDATE- Alecia called to discuss home medication regimen with this RN for approximately 30 minutes to confirm details of what patient is currently taking despite no changes to majority of the meds. These were reviewed once again in detail. Alecia confirmed she will come back tomorrow to sheepskin pickler correction scale for insulin administration.
== END 2020-07-19 15:59 | disposition home health service (06) | DRG 292 ==
LOC: ER 14:16 → MEDS 16:12
PROVIDERS: Emergency Medicine; Internal Medicine; ADMIT Internal Medicine
PROC: 5A09357 Assistance with Respiratory Ventilation, Less than 24 Consecutive Hours, Continuous Positive Airway Pressure (ICD-10-PCS; principal; 2020-07-14)
DX: I11.0 Hypertensive heart disease with heart failure (principal); J96.11 Chronic respiratory failure with hypoxia; I50.33 Acute on chronic diastolic (congestive) heart failure; I16.0 Hypertensive urgency; Z79.01 Long term (current) use of anticoagulants; Z79.4 Long term (current) use of insulin; G47.33 Obstructive sleep apnea (adult) (pediatric); E66.9 Obesity, unspecified; Z95.1 Presence of aortocoronary bypass graft; I25.10 Atherosclerotic heart disease of native coronary artery without angina pectoris; E11.649 Type 2 diabetes mellitus with hypoglycemia without coma; F17.210 Nicotine dependence, cigarettes, uncomplicated; Z68.27 Body mass index [BMI] 27.0-27.9, adult; I48.0 Paroxysmal atrial fibrillation
CPT/HCPCS: 36415; 71045; 80048; 80053; 82550; 82947; 83735; 83880; 84484; 85025; 85027; 93005; 93010; 94640; 94660; 94760; 94762; 96374; 99285-25; A9270; J1650; J1940

== ENCOUNTER 2022-03-26 20:50 | Emergency (ER) | payer MEDICARE, BC ==
[~2022-03-26] VITALS: Ht 188 cm; Wt 90.7 kg
[~2022-03-26 20:50] MED LIST changes: +ALBU90OI INH; +FUROSEMIDE40 MG PO; +KLOR-CON 1010 ME1 PO; +LANTUS SOL100 UNIT/1 SC; +LIPITOR80 MG PO; +LOSARTAN POTASS50 M1 PO; +METOPROLOL TART50 M2 PO; +OLANZAPINE5 M1 PO; +PREGABALIN100 MG PO; +PROZAC20 M3 PO; +SPIR25 PO; +STIOLTO RESPIMAT4 G1 INH; +TRIA15CR3 TOP; +XARELTO20 M1 PO
[2022-03-26 23:29] LABS: BASOPHILS ABSOLUTE AUTO 0.03 K/mm3 (0.00-0.23); BASOPHILS PERCENT AUTO 0 % (0-2); EOSINOPHILS ABSOLUTE AUTO 0.07 K/mm3 (0.00-0.68); EOSINOPHILS PERCENT AUTO 1 % (0-6); Hematocrit 38.1 % (37.0-53.0); Hemoglobin 13.1 g/dL (13.5-17.5); IMMATURE GRAN ABSOLUTE AUTO 0.03 K/mm3 (0.00-0.10); IMMATURE GRAN PERCENT AUTO 0 % (0-1); LYMPHOCYTES ABSOLUTE AUTO 1.22 K/mm3 (0.84-5.20); LYMPHOCYTES PERCENT AUTO 11 % (21-46); MONOCYTES ABSOLUTE AUTO 0.47 K/mm3 (0.16-1.47); MONOCYTES PERCENT AUTO 4 % (4-13); Mean Corpuscular HGB 30.3 pg (26.0-34.0); Mean Corpuscular HGB Conc 34.4 g/dL (31.5-36.5); Mean Corpuscular Volume 88 fL (80-100); Mean Platelet Volume 10.5 fL (9.1-12.4); NEUTROPHILS ABSOLUTE AUTO 9.51 K/mm3 (1.96-9.15); NEUTROPHILS PERCENT AUTO 84 % (41-73); Platelet Count 148 K/mm3 (150-400); RDW Coefficient Variation 14.4 % (11.7-14.2); RDW Standard Deviation 46.5 fL (35.1-46.3); Red Blood Cell Count 4.33 M/mm3 (4.30-5.90); White Blood Cell Count 11.33 K/mm3 (4.00-11.30)
[2022-03-26 23:49] LABS: Albumin, Blood 3.3 g/dL (3.4-5.0); Albumin/Globulin Ratio 0.8 (0.8-1.8); Bilirubin, Total 0.6 mg/dL (0.1-1.0); Bun/Creatinine Ratio 12.2 (12.0-20.0); Calcium, Blood 8.9 mg/dL (8.5-10.1); Creatinine, Blood 0.98 mg/dL (0.60-1.20); Globulin, Blood 4.1 g/dL (2.2-4.0); Potassium, Blood 4.1 mmol/L (3.5-5.5); Total Protein, Blood 7.4 g/dL (6.4-8.2)
== END 2022-03-27 01:51 | disposition home or self-care (01) ==
LOC: ER 20:50
PROVIDERS: Student in an Organized Health Care Education/Training Program
DX: R06.02 Shortness of breath (principal); F41.9 Anxiety disorder, unspecified; E11.9 Type 2 diabetes mellitus without complications; Z91.041 Radiographic dye allergy status; Z88.0 Allergy status to penicillin; Z88.1 Allergy status to other antibiotic agents; Z79.899 Other long term (current) drug therapy; Z79.4 Long term (current) use of insulin; Z79.01 Long term (current) use of anticoagulants; Z87.891 Personal history of nicotine dependence
CPT/HCPCS: 36415; 71045; 80053; 84484; 85025; 93005; 93010

== ENCOUNTER 2022-04-29 09:22 | Day surgery (SDC) | payer MEDICARE, BC ==
[~2022-04-29] VITALS: Ht 188 cm; Wt 84.0 kg
--- NOTE | 2022-04-29 10:11 | NUR ---
04/29/22 1011 SAI PIEDRA PT SOB ON ADMIT/DRANK 80Z H20 [address]30 DR FLOWERS AWARE. ; PT STATES HE FINISHED CLEANSE AFTER 1 BM THIS MORNING ONLY. PT O2 SAT 98% RA AFTER REMOVING POM MASK @ 10 % O2 FOR INITIAL ANXIETY AND SOB. PT REPORTED FEELING BETTER AND SOB SUBSIDED. LUNGS WERE CLEAR TO AUSCILATION. DR SIMMONS AND DR QUEVEDO WITH FAMILY MEMBER AND PT ON RISK VS BENEFIT PRIIOR TO PROCEDDING
--- NOTE | 2022-04-29 10:24 | NUR ---
04/29/22 SAI WREN PT WAS CASNCELLED BY DR PITTMAN AND DR FLOWERS AFTER DETERMINING THE PT ATE AND DRANK PAST THE REQUIRED TIME TO BE SAME AND THE PT PROBABLY WAS NOT CLEANED OUT
== END 2022-04-29 10:25 | disposition home or self-care (01) ==
LOC: ORSCSDS 09:22
DX: R19.7 Diarrhea, unspecified (principal); Z80.0 Family history of malignant neoplasm of digestive organs; Z53.9 Procedure and treatment not carried out, unspecified reason
CPT/HCPCS: 82947; J2704; J7120

== ENCOUNTER 2024-07-11 20:56 | Emergency (ER) | payer MEDICARE, BC ==
[~2024-07-11] VITALS: Ht 188 cm; Wt 83.9 kg
[2024-07-11 21:27] LABS: BASOPHILS ABSOLUTE AUTO 0.02 K/mm3 (0.00-0.23); BASOPHILS PERCENT AUTO 0 % (0-2); EOSINOPHILS ABSOLUTE AUTO 0.03 K/mm3 (0.00-0.68); EOSINOPHILS PERCENT AUTO 0 % (0-6); Hematocrit 33.2 % (37.0-53.0); Hemoglobin 10.8 g/dL (13.5-17.5); IMMATURE GRAN ABSOLUTE AUTO 0.05 K/mm3 (0.00-0.10); IMMATURE GRAN PERCENT AUTO 1 % (0-1); LYMPHOCYTES ABSOLUTE AUTO 0.59 K/mm3 (0.84-5.20); LYMPHOCYTES PERCENT AUTO 6 % (21-46); MONOCYTES ABSOLUTE AUTO 0.29 K/mm3 (0.16-1.47); MONOCYTES PERCENT AUTO 3 % (4-13); Mean Corpuscular HGB 29.6 pg (26.0-34.0); Mean Corpuscular HGB Conc 32.5 g/dL (31.5-36.5); Mean Corpuscular Volume 91 fL (80-100); Mean Platelet Volume 10.7 fL (9.1-12.4); NEUTROPHILS ABSOLUTE AUTO 8.47 K/mm3 (1.96-9.15); NEUTROPHILS PERCENT AUTO 90 % (41-73); Platelet Count 134 K/mm3 (150-400); RDW Coefficient Variation 14.6 % (11.7-14.2); RDW Standard Deviation 49.1 fL (35.1-46.3); Red Blood Cell Count 3.65 M/mm3 (4.30-5.90); White Blood Cell Count 9.45 K/mm3 (4.00-11.30)
[2024-07-11 21:47] LABS: Albumin, Blood 2.8 g/dL (3.4-5.0); Albumin/Globulin Ratio 0.7 (0.8-1.8); Bilirubin, Total 0.3 mg/dL (0.1-1.0); Bun/Creatinine Ratio 12.8 (12.0-20.0); Calcium, Blood 8.6 mg/dL (8.5-10.1); Creatinine, Blood 1.17 mg/dL (0.60-1.20); Free Thyroxine 1.37 ng/dL (0.70-1.60); Globulin, Blood 4.1 g/dL (2.2-4.0); Potassium, Blood 3.3 mmol/L (3.5-5.5); Thyroid Stimulating Hormone 0.948 uIU/mL (0.360-4.800); Total Protein, Blood 6.9 g/dL (6.4-8.2)
[2024-07-11 23:00] VITALS: BP 171/76
== END 2024-07-12 00:27 | disposition home or self-care (01) ==
LOC: ER 20:56
PROVIDERS: Student in an Organized Health Care Education/Training Program
DX: S60.811A Abrasion of right wrist, initial encounter (principal); S60.812A Abrasion of left wrist, initial encounter; M25.551 Pain in right hip; M25.561 Pain in right knee; M25.571 Pain in right ankle and joints of right foot; I10 Essential (primary) hypertension; I25.2 Old myocardial infarction; E11.649 Type 2 diabetes mellitus with hypoglycemia without coma; I48.20 Chronic atrial fibrillation, unspecified; Z91.041 Radiographic dye allergy status; Z79.4 Long term (current) use of insulin; Z79.61 Long term (current) use of immunomodulator; Z79.01 Long term (current) use of anticoagulants; Z88.0 Allergy status to penicillin; Z88.8 Allergy status to other drugs, medicaments and biological substances; Z87.891 Personal history of nicotine dependence
CPT/HCPCS: 70450; 71045; 72125; 72170; 73562-RT; 73610; 80053; 82947; 83735; 84439; 84443; 85025; 93005; 93010; 99285-25

== ENCOUNTER 2024-09-24 12:22 | Inpatient (IN) | payer MEDICARE, BC ==
[~2024-09-24] VITALS: Ht 188 cm; Wt 83.0 kg
[~2024-09-24 12:22] MED LIST changes: -KLOR-CON 1010 ME1 PO
[2024-09-24 12:58] LABS: BASOPHILS ABSOLUTE AUTO 0.03 K/mm3 (0.00-0.23); BASOPHILS PERCENT AUTO 0 % (0-2); EOSINOPHILS ABSOLUTE AUTO 0.08 K/mm3 (0.00-0.68); EOSINOPHILS PERCENT AUTO 1 % (0-6); Hematocrit 36.2 % (37.0-53.0); Hemoglobin 11.3 g/dL (13.5-17.5); IMMATURE GRAN ABSOLUTE AUTO 0.03 K/mm3 (0.00-0.10); IMMATURE GRAN PERCENT AUTO 0 % (0-1); LYMPHOCYTES ABSOLUTE AUTO 2.26 K/mm3 (0.84-5.20); LYMPHOCYTES PERCENT AUTO 24 % (21-46); MONOCYTES ABSOLUTE AUTO 0.57 K/mm3 (0.16-1.47); MONOCYTES PERCENT AUTO 6 % (4-13); Mean Corpuscular HGB 29.6 pg (26.0-34.0); Mean Corpuscular HGB Conc 31.2 g/dL (31.5-36.5); Mean Corpuscular Volume 95 fL (80-100); Mean Platelet Volume 11.4 fL (9.1-12.4); NEUTROPHILS ABSOLUTE AUTO 6.39 K/mm3 (1.96-9.15); NEUTROPHILS PERCENT AUTO 68 % (41-73); Platelet Count 130 K/mm3 (150-400); RDW Coefficient Variation 15.9 % (11.7-14.2); RDW Standard Deviation 54.4 fL (35.1-46.3); Red Blood Cell Count 3.82 M/mm3 (4.30-5.90); White Blood Cell Count 9.36 K/mm3 (4.00-11.30)
[2024-09-24 13:16] LABS: Albumin, Blood 3.3 g/dL (3.4-5.0); Albumin/Globulin Ratio 0.8 (0.8-1.8); Bilirubin, Total 0.4 mg/dL (0.1-1.0); Bun/Creatinine Ratio 16.8 (12.0-20.0); Calcium, Blood 8.2 mg/dL (8.5-10.1); Creatinine, Blood 1.49 mg/dL (0.60-1.20); Globulin, Blood 4.3 g/dL (2.2-4.0); Potassium, Blood 3.9 mmol/L (3.5-5.5); Total Protein, Blood 7.6 g/dL (6.4-8.2)
[2024-09-24] MEDS ORDERED: Furosemide 10 MG/ML 4ML Vial IV ONE (13:30)
[2024-09-24] MEDS ORDERED: Ipratropium/Albuterol SulF 2.5-0.5MG/3 ML Amp INH PRN (16:50)
[2024-09-24] MEDS ORDERED: Acetaminophen 325 MG TABLET PO PRN (16:55)
[2024-09-24] MEDS ORDERED: Magnesium Hydroxide Conc 10 ML UDC PO PRN (16:55)
[2024-09-24] MEDS ORDERED: Empagliflozin 10 MG TAB PO SCH (17:00)
[2024-09-24] MEDS ORDERED: Rivaroxaban 10 MG Tab PO SCH (18:00)
[2024-09-24] MEDS ORDERED: Furosemide 10 MG/ML 4ML Vial IV SCH (18:00)
[2024-09-24] MEDS ORDERED: ELIQUIS5 M2 PO (19:17)
[2024-09-24] MEDS ORDERED: FURO20 PO (19:18)
[2024-09-24] MEDS ORDERED: Dextrose 50% 50 ML Syringe ONE (20:49)
[2024-09-24] MEDS ORDERED: Dextrose 50% 50 ML Syringe IV ONE (20:55)
[2024-09-24] MEDS ORDERED: Pregabalin 50 MG Capsule PO SCH (21:00)
[2024-09-24] MEDS ORDERED: Docusate Sodium 100 MG Cap PO SCH (21:00)
[2024-09-24] MEDS ORDERED: Metoprolol Tartrate 25 MG Tab PO SCH (21:00)
[2024-09-24] MEDS ORDERED: OLANZapine 5 MG Tab PO SCH (21:00)
[2024-09-24] MEDS ORDERED: Insulin Glargine-Yfgn 100 Unit/mL 3 ML SYR SC SCH (21:00)
[2024-09-24] MEDS ORDERED: HydrALAZINE HCl 20 MG / ML 1ML Vial IV PRN (22:00)
[2024-09-24 22:47] VITALS: BP 164/53
--- NOTE | 2024-09-24 22:50 | NUR ---
PT HERE VIA [facility] FROM ER. PT TRANSFERRED TO MEDICAL FLOOR BED. PT HAS PALE SKIN COLOR. PT REPORTS FEELING SOB, INSTRUCTED ON PURSED LIP BREATHING AND TRIPOD OVER OVERBED TABLE. PT HAS 2L O2 IN ON. PT HAS SCATTERED SKIN ABRASIONS TO BLE, AND A BLANCHABLE REDDENED AREA TO COCCYX - MEPILEX PLACED ON TO COCCYX. PT PLACED ON CONTINUOUS BIOX. DURING MY ASSESSMENT, PT REPORTED FEELING BETTER, BREATHING HAS IMPROVED, PER PT. PT REQUESTED FOOD/WATER - PROVIDED. CBG TAKEN BEFORE EATING - SEE LAB. BED ALARM ON - INSTRUCTED ON USE OF CALL LIGHT PRIOR TO GETTING OUT OF BED. BED IN LOW POSITION.
[2024-09-24] MEDS ORDERED: DOCU100 PO (23:01)
[2024-09-24] MEDS ORDERED: BENADRYL25 MG PO ×2 (23:04)
--- NOTE | 2024-09-25 03:43 | NUR ---
PLUCK SEPARATOR SUMMARY: PT ADMITTED FOR ACUTE ON CHRONIC CHF EXACERBATION. TOA TO MEDICAL FLOOR: 2230 VIA GURNEY FROM ED. CAR RENTAL SERVICE ATTENDANT COMPLETED ADMISSION ASSESSMENT AND THIS NURSE ASSUMED CARE THEREAFTER. SEE PREVIOUS NURSING NOTE FOR MORE INFO. NO ACUTE EVENTS. PT USES CALL LIGHT APPROPRIATELY. CONTINUOUS BOIX IN PLACE. SATS MAINTAINED ABOVE 92% ON 2L VIA NC. NO NOTED RESPIRATORY DISTRESS ONCE PT SETTLED AFTER TRANSFER FROM ED. CONTINENT OF URINE USING URINAL. BED IN LOWEST POSITION. CALL LIGHT IN REACH. BED ALARM ARMED. CARES ONGOING ORDERED.
[2024-09-25 04:12] VITALS: BP 132/59
[2024-09-25 06:14] LABS: BASOPHILS ABSOLUTE AUTO 0.02 K/mm3 (0.00-0.23); BASOPHILS PERCENT AUTO 0 % (0-2); EOSINOPHILS ABSOLUTE AUTO 0.07 K/mm3 (0.00-0.68); EOSINOPHILS PERCENT AUTO 1 % (0-6); Hematocrit 35.5 % (37.0-53.0); IMMATURE GRAN ABSOLUTE AUTO 0.01 K/mm3 (0.00-0.10); IMMATURE GRAN PERCENT AUTO 0 % (0-1); LYMPHOCYTES PERCENT AUTO 25 % (21-46); MONOCYTES ABSOLUTE AUTO 0.54 K/mm3 (0.16-1.47); MONOCYTES PERCENT AUTO 8 % (4-13); Mean Corpuscular HGB 29.3 pg (26.0-34.0); Mean Corpuscular Volume 95 fL (80-100); Mean Platelet Volume 11.7 fL (9.1-12.4); NEUTROPHILS ABSOLUTE AUTO 4.37 K/mm3 (1.96-9.15); NEUTROPHILS PERCENT AUTO 65 % (41-73); Platelet Count 118 K/mm3 (150-400); RDW Coefficient Variation 15.8 % (11.7-14.2); RDW Standard Deviation 53.9 fL (35.1-46.3); Red Blood Cell Count 3.75 M/mm3 (4.30-5.90); White Blood Cell Count 6.71 K/mm3 (4.00-11.30)
[2024-09-25 06:49] LABS: Albumin, Blood 2.9 g/dL (3.4-5.0); Albumin/Globulin Ratio 0.7 (0.8-1.8); Bilirubin, Total 0.4 mg/dL (0.1-1.0); Bun/Creatinine Ratio 19.2 (12.0-20.0); Calcium, Blood 8.4 mg/dL (8.5-10.1); Creatinine, Blood 1.3 mg/dL (0.60-1.20); Globulin, Blood 3.9 g/dL (2.2-4.0); Potassium, Blood 3.8 mmol/L (3.5-5.5); Total Protein, Blood 6.8 g/dL (6.4-8.2)
[2024-09-25] MEDS ORDERED: Insulin Regular 100 UNIT/ML 10ML Vial SC SCH (07:30)
[2024-09-25] MEDS ORDERED: Insulin Human Lispro 100 Units/ML 3ML Syringe SC SCH (07:30)
[2024-09-25 07:32] VITALS: BP 153/74
[2024-09-25] MEDS ORDERED: FLONASE ALLERG9.9 ML (08:40)
[2024-09-25] MEDS ORDERED: Enoxaparin 40 MG/0.4 ML SYR SC SCH (09:00)
[2024-09-25] MEDS ORDERED: Spironolactone 25 MG Tab PO SCH (09:00)
[2024-09-25] MEDS ORDERED: Atorvastatin 40 MG Tab PO SCH (09:00)
[2024-09-25] MEDS ORDERED: Losartan Potassium 50 MG Tab PO SCH (09:00)
[2024-09-25] MEDS ORDERED: FLUoxetine HCL 20 MG CAP PO SCH (09:00)
--- NOTE | 2024-09-25 09:00 | NUR ---
pt sitting up for breakfast, a/ox3-4, pleasant and cooperative with care, follows commands well, denies pain at this time, cbg was 45 this am, gave rootbeer and breakfast, lungs are clear in upper james, dim in bases, amber left base, currently on 2 liters 02 via n/c, is home o2 dep. no cough noted, hrirr, tele in place runnin afib/flutter per monitor, see strip, no edema noted, ppp+1, cap refill<3 sec, vs stable, afebrile, piv to rfa, site is clear and patent, btx4, abd flat soft nontender, voids via urinal, and has pullups in place, skin has a pink blanchable coccyx, mepilex in place for protection, maew, uses a walker to ambulate, one person to assist for transfers, siva, call light in reach.
[2024-09-25 11:56] VITALS: BP 138/55
[2024-09-25 16:18] VITALS: BP 148/56
--- NOTE | 2024-09-25 19:45 | NUR ---
SHIFT SUMMARY 1315 ASSUMED CARE OF PT, SITTING UP IN CHAIR AT BS. PT ADMITTED FOR CHF, RECEIVING IV LASIX. MEDICATIONS ADJUSTED TODAY. A-FIB ON TELE, RATE CONTROLLED. PT IS A 1P ASSIST TO GET UP TO CHAIR OR INTO BTHRM. PT ABLE TO AMBULATE WITH ASSIST. PT/OT IN TO WORK WITH PT THIS AFTERNOON. VERY PLEASANT AND CO-OP WITH CARE. ABLE TO MAKE NEEDS KNOWN. CALL LT IN REACH. REPORT GIVEN TO ONCOMING RN.
[2024-09-25] MEDS ORDERED: Metoprolol Tartrate 25 MG Tab PO SCH (21:00)
[2024-09-25] MEDS ORDERED: Apixaban 5 MG Tab PO SCH (21:00)
[2024-09-26 00:25] VITALS: BP 110/47
--- NOTE | 2024-09-26 04:00 | NUR ---
SHIFT SUMMARY NO ACUTE EVENTS DURING THIS SHIFT. PT IS PLEASANT, A/O X4, ABLE TO MAKE HIS NEEDS KNOWN. O2 VIA NASAL CANNULA, SAT'S>95%. STRICT I&O'S MULTIPLE TRIPS TO THE RESTROOM WITH 1-PERSON ASSIST TO VOID. @HS PT C/O 01/30 PAIN IN LE'S BILATERALLY. PRN TYLENOL ADMINISTERED PER PT REQUEST. HS B. HS SNACK PROVIDED. BED AT THE LOWEST POSITION, CALL LIGHT W/I REACH.
[2024-09-26 04:49] VITALS: BP 152/73
[2024-09-26 05:50] LABS: BASOPHILS ABSOLUTE AUTO 0.03 K/mm3 (0.00-0.23); BASOPHILS PERCENT AUTO 1 % (0-2); EOSINOPHILS ABSOLUTE AUTO 0.14 K/mm3 (0.00-0.68); EOSINOPHILS PERCENT AUTO 2 % (0-6); Hematocrit 35.4 % (37.0-53.0); Hemoglobin 11.2 g/dL (13.5-17.5); IMMATURE GRAN ABSOLUTE AUTO 0.01 K/mm3 (0.00-0.10); IMMATURE GRAN PERCENT AUTO 0 % (0-1); LYMPHOCYTES ABSOLUTE AUTO 1.87 K/mm3 (0.84-5.20); LYMPHOCYTES PERCENT AUTO 31 % (21-46); MONOCYTES ABSOLUTE AUTO 0.49 K/mm3 (0.16-1.47); MONOCYTES PERCENT AUTO 8 % (4-13); Mean Corpuscular HGB 29.7 pg (26.0-34.0); Mean Corpuscular HGB Conc 31.6 g/dL (31.5-36.5); Mean Corpuscular Volume 94 fL (80-100); Mean Platelet Volume 11.5 fL (9.1-12.4); NEUTROPHILS ABSOLUTE AUTO 3.52 K/mm3 (1.96-9.15); NEUTROPHILS PERCENT AUTO 58 % (41-73); Platelet Count 121 K/mm3 (150-400); RDW Coefficient Variation 15.9 % (11.7-14.2); RDW Standard Deviation 54.4 fL (35.1-46.3); Red Blood Cell Count 3.77 M/mm3 (4.30-5.90); White Blood Cell Count 6.06 K/mm3 (4.00-11.30)
[2024-09-26 06:18] LABS: Albumin, Blood 3.1 g/dL (3.4-5.0); Albumin/Globulin Ratio 0.8 (0.8-1.8); Bilirubin, Total 0.4 mg/dL (0.1-1.0); Bun/Creatinine Ratio 19.5 (12.0-20.0); Calcium, Blood 8.4 mg/dL (8.5-10.1); Creatinine, Blood 1.59 mg/dL (0.60-1.20); Globulin, Blood 4.1 g/dL (2.2-4.0); Potassium, Blood 3.6 mmol/L (3.5-5.5); Total Protein, Blood 7.2 g/dL (6.4-8.2)
[2024-09-26 07:46] VITALS: BP 137/67
[2024-09-26] MEDS ORDERED: Metoprolol Succinate 50 MG TABCR PO SCH (09:00)
[2024-09-26 11:20] VITALS: BP 123/57
[2024-09-26] MEDS ORDERED: HUMALOG KW100 UNIT/1 (11:20)
[2024-09-26] MEDS ORDERED: SPIR25 PO (11:21)
[2024-09-26] MEDS ORDERED: JARDIANCE10 MG PO (11:21)
[2024-09-26] MEDS ORDERED: METO50ER PO (11:21)
--- NOTE | 2024-09-26 14:45 | NUR ---
SHIFT SUMMARY PATIENT AO X 4, PLEASANT, NO ACUTE CHANGE AT THIS TIME. PATIENT MAKE NEEDS KNOWN. ABLE TO SELF REPOSITION. AWAITING FOR HOME 02 EVALUATION AND D/C TO HOME. CALL LIGHT WITHIN REACH AND BED IN LOWEST POSITION.
[2024-09-26 15:53] VITALS: BP 137/61
--- NOTE | 2024-09-26 18:21 | NUR ---
PT DISCHARGED HOME WITH HOME HEALTH. O2 DELIVERED TO ROOM. DISCHARGE INSTRUCTIONS DISCUSSED WITH SADIE. NO QUESTIONS OR CONCERNS AT DISCHARGE. PT TRANSPORTED HOME BY SADIE.
== END 2024-09-26 17:55 | disposition home health service (06) | DRG 291 ==
LOC: ER 12:22 → MEDS 12:23
PROVIDERS: Student in an Organized Health Care Education/Training Program; ADMIT Internal Medicine
DX: I11.0 Hypertensive heart disease with heart failure (principal); I50.23 Acute on chronic systolic (congestive) heart failure; I48.20 Chronic atrial fibrillation, unspecified; N17.9 Acute kidney failure, unspecified; J96.11 Chronic respiratory failure with hypoxia; J44.9 Chronic obstructive pulmonary disease, unspecified; E11.649 Type 2 diabetes mellitus with hypoglycemia without coma; Z66 Do not resuscitate; D64.9 Anemia, unspecified; E78.5 Hyperlipidemia, unspecified; E11.40 Type 2 diabetes mellitus with diabetic neuropathy, unspecified; G47.33 Obstructive sleep apnea (adult) (pediatric); F03.90 Unspecified dementia, unspecified severity, without behavioral disturbance, psychotic disturbance, mood disturbance, and anxiety; I25.10 Atherosclerotic heart disease of native coronary artery without angina pectoris; Z95.1 Presence of aortocoronary bypass graft; Z99.81 Dependence on supplemental oxygen; Z79.01 Long term (current) use of anticoagulants; Z91.041 Radiographic dye allergy status; Z88.0 Allergy status to penicillin; Z88.1 Allergy status to other antibiotic agents; Z88.8 Allergy status to other drugs, medicaments and biological substances; Z79.4 Long term (current) use of insulin; Z79.83 Long term (current) use of bisphosphonates; I25.2 Old myocardial infarction
CPT/HCPCS: 36415; 71045; 80053; 82947; 83036; 83880; 84484; 85025; 93005; 93010; 93306; 94761; 96374; 96375; 96376; 97162; 97165; 97530; 97535; 99285-25; A9270; G0378; J0360; J1815; J1938

== ENCOUNTER → 2024-10-01 | Outpatient (CLI) | payer MEDICARE, BC ==
[~2024-10-01] MED LIST changes: +BANOPHEN25 MG PO; +BENADRYL25 MG PO; +ELIQUIS5 M2 PO; +FLONASE ALLERG9.9 ML; +HUMALOG KW100 UNIT/1; +JARDIANCE10 MG PO; +TRELEGY ELLIPT1 EAC1 INH
== END ==
LOC: LAB 17:27 → LAB SHORT 17:27
DX: I50.23 Acute on chronic systolic (congestive) heart failure (principal)
CPT/HCPCS: 84132

== ENCOUNTER 2024-10-05 02:05 | Inpatient (IN) | payer MEDICARE, BC ==
[~2024-10-05] VITALS: Ht 188 cm; Wt 78.5 kg
[~2024-10-05 02:05] MED LIST changes: -BANOPHEN25 MG PO; -HUMALOG KW100 UNIT/1; +HUMALOG KW100 UNIT/1 SC; -TRELEGY ELLIPT1 EAC1 INH
[2024-10-05 05:14] LABS: BASOPHILS ABSOLUTE AUTO 0.03 K/mm3 (0.00-0.23); BASOPHILS PERCENT AUTO 0 % (0-2); EOSINOPHILS ABSOLUTE AUTO 0.11 K/mm3 (0.00-0.68); EOSINOPHILS PERCENT AUTO 2 % (0-6); Hemoglobin 10.9 g/dL (13.5-17.5); IMMATURE GRAN ABSOLUTE AUTO 0.01 K/mm3 (0.00-0.10); IMMATURE GRAN PERCENT AUTO 0 % (0-1); LYMPHOCYTES ABSOLUTE AUTO 1.81 K/mm3 (0.84-5.20); LYMPHOCYTES PERCENT AUTO 26 % (21-46); MONOCYTES ABSOLUTE AUTO 0.38 K/mm3 (0.16-1.47); MONOCYTES PERCENT AUTO 6 % (4-13); Mean Corpuscular HGB 29.5 pg (26.0-34.0); Mean Corpuscular HGB Conc 31.1 g/dL (31.5-36.5); Mean Corpuscular Volume 95 fL (80-100); Mean Platelet Volume 12.1 fL (9.1-12.4); NEUTROPHILS ABSOLUTE AUTO 4.56 K/mm3 (1.96-9.15); NEUTROPHILS PERCENT AUTO 66 % (41-73); Platelet Count 120 K/mm3 (150-400); RDW Coefficient Variation 15.4 % (11.7-14.2); RDW Standard Deviation 53.8 fL (35.1-46.3)
[2024-10-05 05:24] LABS: Base Excess Venous 4.5 mmol/L; Bicarbonate Venous 25.9 mmol/L (24.0-30.0); PCO2 Venous 75.9 mmHg (38-42); pH Blood Venous 7.23 (7.34-7.37)
[2024-10-05 05:55] LABS: Albumin, Blood 3.4 g/dL (3.4-5.0); Albumin/Globulin Ratio 0.8 (0.8-1.8); Bilirubin, Total 0.4 mg/dL (0.1-1.0); Bun/Creatinine Ratio 23.6 (12.0-20.0); Calcium, Blood 8.9 mg/dL (8.5-10.1); Creatinine, Blood 1.57 mg/dL (0.60-1.20); Globulin, Blood 4.4 g/dL (2.2-4.0); Potassium, Blood 4.7 mmol/L (3.5-5.5); Total Protein, Blood 7.8 g/dL (6.4-8.2)
[2024-10-05 09:37] LABS: PCO2 Venous 60.6 mmHg (38-42); pH Blood Venous 7.29 (7.34-7.37)
[2024-10-05 09:39] LABS: Bicarbonate Venous 25.6 mmol/L (24.0-30.0)
[2024-10-05 09:40] LABS: Base Excess Venous 2.7 mmol/L
[2024-10-05] MEDS ORDERED: Furosemide 10 MG/ML 4ML Vial IV ONE ×2 (09:55→12:45)
[2024-10-05 14:07] VITALS: BP 166/56
[2024-10-05] MEDS ORDERED: TRELEGY ELLIPT1 EAC1 INH (15:31)
[2024-10-05] MEDS ORDERED: BENADRYL25 MG PO (15:32)
[2024-10-05] MEDS ORDERED: BANOPHEN25 MG PO (15:32)
[2024-10-05 15:33] VITALS: BP 119/77
[2024-10-05] MEDS ORDERED: Insulin Human Lispro 100 Units/ML 3ML Syringe SC SCH (16:30)
--- NOTE | 2024-10-05 17:17 | NUR ---
SHIFT SUMMARY PT AOX3/4, COOPERATIVE, ABLE TO MAKE NEESD KNOWN. PT IS AMUBLATORY WITH FWW, DOES NOT USE ASSISTIVE DEVICES AT HOME. ON TELE CURRENLTY. SISTER IS CAREGIVER, CONTACT WITH ANY QUESTIONS. BED IN LOWEST POSITION, CALL LIGHT WITHIN REACH.
[2024-10-05 19:51] VITALS: BP 152/61
[2024-10-06 00:01] VITALS: BP 152/50
[2024-10-06] MEDS ORDERED: Acetaminophen 325 MG TABLET PO PRN (00:25)
[2024-10-06 04:05] VITALS: BP 169/61
--- NOTE | 2024-10-06 04:17 | NUR ---
SHIFT SUMMARY PT ALERT AND ORIENTED TIMES 3. PT ADMITTED FOR ACUTE ON CHRONIC RESPIRATORY FAILURE. PT DID NOT APPEARED TO SLEEP THROUGH THE NIGHT. PT WAS ABLE TO MAKE NEEDS KNOWN TO STAFF. PT IS ONE PERSON STAND BY ASSIST TO TOILET. PT HAD MULTIPLE BM S THROUGH THE NIGHT. PT HAS VERY SHORT MEMORY. FORGETS HE IS IN HOSPITAL. PT IS ON 3L O2. PT HAS TELE THAT HAS BEEN READING AFIB IN THE 70 S. CALL LIGHT WITHIN REACH, RAILS TIMES 2, BED IN LOW POSITION.
[2024-10-06 06:10] LABS: Base Excess Venous 6.2 mmol/L; Bicarbonate Venous 27.4 mmol/L (24.0-30.0); PCO2 Venous 59.1 mmHg (38-42); pH Blood Venous 7.34 (7.34-7.37)
[2024-10-06 06:12] LABS: BASOPHILS ABSOLUTE AUTO 0.02 K/mm3 (0.00-0.23); BASOPHILS PERCENT AUTO 0 % (0-2); EOSINOPHILS ABSOLUTE AUTO 0.15 K/mm3 (0.00-0.68); EOSINOPHILS PERCENT AUTO 2 % (0-6); Hematocrit 33.6 % (37.0-53.0); Hemoglobin 10.8 g/dL (13.5-17.5); IMMATURE GRAN ABSOLUTE AUTO 0.02 K/mm3 (0.00-0.10); IMMATURE GRAN PERCENT AUTO 0 % (0-1); LYMPHOCYTES ABSOLUTE AUTO 1.45 K/mm3 (0.84-5.20); LYMPHOCYTES PERCENT AUTO 18 % (21-46); MONOCYTES ABSOLUTE AUTO 0.35 K/mm3 (0.16-1.47); MONOCYTES PERCENT AUTO 4 % (4-13); Mean Corpuscular HGB 29.9 pg (26.0-34.0); Mean Corpuscular HGB Conc 32.1 g/dL (31.5-36.5); Mean Corpuscular Volume 93 fL (80-100); Mean Platelet Volume 11.3 fL (9.1-12.4); NEUTROPHILS ABSOLUTE AUTO 6.03 K/mm3 (1.96-9.15); NEUTROPHILS PERCENT AUTO 75 % (41-73); Platelet Count 116 K/mm3 (150-400); RDW Coefficient Variation 15.4 % (11.7-14.2); Red Blood Cell Count 3.61 M/mm3 (4.30-5.90); White Blood Cell Count 8.02 K/mm3 (4.00-11.30)
[2024-10-06 06:46] LABS: Anion Gap 9 mmol/L (3-11); Blood Urea Nitrogen 39 mg/dL (8-24); Bun/Creatinine Ratio 28.1 (12.0-20.0); CHOL/HDL RATIO 3.8; CO2, Blood 29 mmol/L (21-32); Calcium, Blood 8.8 mg/dL (8.5-10.1); Chloride, Blood 101 mmol/L (98-108); Cholesterol 84 mg/dL (50-200); Creatinine, Blood 1.39 mg/dL (0.60-1.20); Glomerular Filtration Rate 53 (60-); Glucose, Blood 254 mg/dL (70-99); HDL Cholesterol 22 mg/dL (>39); LDL/HDL RATIO 1.7; Low Density Lipoprotein Chol 38 mg/dL (0-110); Potassium, Blood 4.5 mmol/L (3.5-5.5); Sodium, Blood 134 mmol/L (136-145); Triglycerides 118 mg/dL (30-160); Very Low Density Lipoprot Chol 23 mg/dL (6-32)
[2024-10-06 07:17] VITALS: BP 144/68
[2024-10-06] MEDS ORDERED: Furosemide 10 MG/ML 4ML Vial IV SCH (08:00)
[2024-10-06 11:14] VITALS: BP 123/56
[2024-10-06 16:20] VITALS: BP 142/55
[2024-10-06] MEDS ORDERED: Furosemide 10 MG/ML 4ML Vial IV STA (17:19)
[2024-10-06] MEDS ORDERED: DiphenhydrAMINE HCL 25 MG Cap PO PRN (17:30)
--- NOTE | 2024-10-06 17:55 | NUR ---
A&Ox3/4,DNR, ACHS & GAVE INSULIN PER EMAR, PT STATED HE IS 3 LITERS BASELINE, CURRENTLY ON 1 LITER, COMPLAINED OF FEET HURTING & GAVE TYLENOL, SBA TO BATHROOM WITH WALKER, FAMILY AT BEDSIDE FOR A BIT, PT FELT ANXIOUS, FREQUENT CALLS & REASSURANCE/ COMFORT, WILL CALL FOR ASSISTANCE IF NEEDED
--- NOTE | 2024-10-06 18:27 | NUR ---
REVIEWED CHARTING ENTERED BY MICHELLE ROCHE, STUDENT NURSE AND I AGREE WITH HER DOCUMENATION FOR THIS PATIENT.
[2024-10-06 19:21] VITALS: BP 154/69
[2024-10-06] MEDS ORDERED: Apixaban 5 MG Tab PO SCH (21:00)
[2024-10-06] MEDS ORDERED: Pregabalin 50 MG Capsule PO SCH (21:00)
[2024-10-07] VITALS (7 sets, daily range): BP systolic 102–185; BP diastolic 40–93
[2024-10-07] MEDS ORDERED: HydrALAZINE HCl 20 MG / ML 1ML Vial IV PRN (05:05)
[2024-10-07 06:06] LABS: Magnesium, Blood 1.6 mg/dL (1.6-2.4)
[2024-10-07 06:07] LABS: Albumin, Blood 3.5 g/dL (3.4-5.0); Anion Gap 11 mmol/L (3-11); Blood Urea Nitrogen 38 mg/dL (8-24); CO2, Blood 26 mmol/L (21-32); Calcium, Blood 9.1 mg/dL (8.5-10.1); Chloride, Blood 98 mmol/L (98-108); Creatinine, Blood 1.41 mg/dL (0.60-1.20); Glomerular Filtration Rate 52 (60-); Glucose, Blood 240 mg/dL (70-99); Phosphorus, Blood 3.3 mg/dL (2.5-4.9); Potassium, Blood 3.8 mmol/L (3.5-5.5); Sodium, Blood 131 mmol/L (136-145)
--- NOTE | 2024-10-07 07:17 | NUR ---
SHIFT SUMMARY: PT IS A&OX3-4, FORGETFUL BUT PLEASANT AND COOPERATIVE WITH CARE. PT PREFERS TO GO BY THE NAME, 'BUD'. AWAKE MOST OF THIS SHIFT, FREQUENTLY CALLING. HTN, SYS >180, PRN HYDRALAZINE GIVEN. ON 1L NC, SATS 100%. A-FLUTTER 70'S-90'S. C/O PAIN IN HIS BLE AND FEET. PT TOLERATING A CONS CARB DIET, WITH GOOD APPETITE AND SNACKING T/O THE NIGHT. PT IS SBA TO BR. VOIDING ADEQUATE AMOUNTS OF PALE YELLOW URINE. NO BM THIS SHIFT, FEELS LIKE HE NEEDS TO GO. PT HAS USED HIS URINAL INDEPENDENTLY AT BEDSIDE. BED IN LOWEST POSITION, CALL LIGHT WITHIN REACH. CALLS APPROPRIATELY AND IS ABLE TO ADVOCATE NEEDS EFFECTIVELY.
[2024-10-07] MEDS ORDERED: Albuterol 2.5 MG/3 ML VIAL INH PRN (08:55)
[2024-10-07] MEDS ORDERED: Atorvastatin 40 MG Tab PO SCH (09:00)
[2024-10-07] MEDS ORDERED: Losartan Potassium 50 MG Tab PO SCH (09:00)
[2024-10-07] MEDS ORDERED: Metoprolol Succinate 50 MG TABCR PO SCH (09:00)
[2024-10-07] MEDS ORDERED: Empagliflozin 10 MG TAB PO SCH (09:00)
[2024-10-07] MEDS ORDERED: Spironolactone 25 MG Tab PO SCH (09:00)
[2024-10-07] MEDS ORDERED: Insulin Glargine-Yfgn 100 Unit/mL 3 ML SYR SC SCH (09:00)
[2024-10-07] MEDS ORDERED: Mometasone/Formoterol MDI 200/5 mcg 13 GM INH SCH (09:35)
[2024-10-07] MEDS ORDERED: Ipratropium Bromide INH 0.02% 0.5 mg/2.5ML Vial INH SCH (09:35)
[2024-10-07] MEDS ORDERED: Tiotropium Bromide 2.5 MCG/ACT MIST INHAL (10 ACT/4 GM) INH SCH (11:35)
--- NOTE | 2024-10-07 16:46 | NUR ---
A&OX3/4, DNR, ON TELE A-FIB, STRICT I/O, CONTINUE TO DIURESIS, BLOOD SUGARS ELEVATED & GAVE SHORT & LONG ACTING INSULIN, USES WALKER WITH SBA TO BATHROOM, ON 1 LITER OXYGEN, FORGETFUL AT TIMES & ANXIOUS, NEEDS REASSURANCE/REDIRECTION, HAS SMALL ULCER ON RIGHT FOOT & PIC IN CHART, CALLS FOR ASSISTANCE APPROPRIATELY
--- NOTE | 2024-10-08 05:03 | NUR ---
SHIFT SUMMARY PATIENT IS ALERT AND ORIENTED. PATIENT HAS HAD NO ACUTE EVENTS THIS SHIFT. VITAL SIGNS REVIEWED. CBG ELEVATED. PATIENT HAS BEEN SLEEPING OFF AND ON THIS SHIFT. PATIENT HAS COMPLAINED OF [place]LS[place] THIS SHIFT AND MEDICATED PER EMAR. PATIENT HAS HAD NO COMPLAINTS OF NAUSEA, SOB OR VOMITTING THIS SHIFT. NO EVENTS ON TELE. BED IN LOCKED AND LOWEST POSITION. CALL LIGHT IN PLACE.
[2024-10-08 05:11] VITALS: BP 132/66
[2024-10-08 06:16] LABS: Hematocrit 34.1 % (37.0-53.0); Hemoglobin 11.1 g/dL (13.5-17.5); Mean Corpuscular HGB 29.2 pg (26.0-34.0); Mean Corpuscular HGB Conc 32.6 g/dL (31.5-36.5); Mean Corpuscular Volume 90 fL (80-100); Mean Platelet Volume 11.6 fL (9.1-12.4); Platelet Count 121 K/mm3 (150-400); RDW Coefficient Variation 15.3 % (11.7-14.2); RDW Standard Deviation 50.5 fL (35.1-46.3)
[2024-10-08 07:15] LABS: Ferritin, Serum 185 ng/mL (26-388); Iron Serum 78 ug/dL (65-175); Magnesium, Blood 1.7 mg/dL (1.6-2.4); Percent Saturation 32.4 % (20.0-50.0); Total Iron Binding Capacity 241 ug/dL (250-450)
[2024-10-08 07:37] LABS: Albumin, Blood 3.2 g/dL (3.4-5.0); Anion Gap 10 mmol/L (3-11); Blood Urea Nitrogen 53 mg/dL (8-24); CO2, Blood 26 mmol/L (21-32); Calcium, Blood 8.4 mg/dL (8.5-10.1); Chloride, Blood 99 mmol/L (98-108); Creatinine, Blood 1.96 mg/dL (0.60-1.20); Glomerular Filtration Rate 35 (60-); Glucose, Blood 218 mg/dL (70-99); Potassium, Blood 3.4 mmol/L (3.5-5.5); Sodium, Blood 132 mmol/L (136-145)
[2024-10-08 07:38] VITALS: BP 126/64
[2024-10-08] MEDS ORDERED: Potassium Chloride 10 Meq Tablet SA PO ONE (08:30)
[2024-10-08 15:43] VITALS: BP 115/57
--- NOTE | 2024-10-08 17:55 | NUR ---
SHIFT SUMMARY: PT AOX3, PLEASANT AND COOPERATIVE. WEAK, UNSTEADY GAIT. USES WALKER WITH STANDBY ASSIST TO THE BATHROOM, ALSO USES URINAL. PT COMPLAINED OF HEADACHE THIS MORNING, MEDICATED WITH TYLENOL PER THE JUL. HEADACHE PAIN WAS RELIEVED UPON REASSESSMENT. OCCASIONALLY COMPLAINS OF SOB, O2 SAT ABOVE 95% UPON ASSESSMENT. NO ACUTE EVENTS TODAY. PATIENT CURRENTLY VISITING WITH FAMILY, CALL LIGHT WITHIN REACH.
[2024-10-08] MEDS ORDERED: BASAGLAR K100 UNIT/8 (18:04)
[2024-10-08] MEDS ORDERED: POTA10T PO (18:05)
[2024-10-08 19:46] VITALS: BP 102/48
[2024-10-08 23:23] VITALS: BP 125/61
[2024-10-09 03:18] VITALS: BP 128/51
--- NOTE | 2024-10-09 04:08 | NUR ---
SHIFT SUMMARY PATIENT IS ALERT AND ORIENTED 3-4X. PATIENT HAS HAD NO ACUTE EVENTS THIS SHIFT. VITAL SIGNS REVIEWED. PATIENT HAS NO COMPLAINTS OF PAIN, NAUSEA, SOB OR VOMITTING. PATIENT HAS BEEN ON RA SATTING ABOVE 95. PATIENT HAS HAD A LARGE BM THIS SHIFT. CBG HAS BEEN ELEVATED. BED IN LOCKED AND LOWEST POSITION. CALL LIGHT IN PLACE.
[2024-10-09 06:54] LABS: Albumin, Blood 3.1 g/dL (3.4-5.0); Anion Gap 11 mmol/L (3-11); Blood Urea Nitrogen 56 mg/dL (8-24); Bun/Creatinine Ratio 32.7 (12.0-20.0); CO2, Blood 24 mmol/L (21-32); Calcium, Blood 8.2 mg/dL (8.5-10.1); Chloride, Blood 105 mmol/L (98-108); Creatinine, Blood 1.71 mg/dL (0.60-1.20); Glomerular Filtration Rate 41 (60-); Glucose, Blood 205 mg/dL (70-99); Magnesium, Blood 1.8 mg/dL (1.6-2.4); Phosphorus, Blood 5.7 mg/dL (2.5-4.9); Potassium, Blood 3.9 mmol/L (3.5-5.5); Sodium, Blood 136 mmol/L (136-145)
[2024-10-09 07:40] VITALS: BP 153/61
[2024-10-09] MEDS ORDERED: Albuterol 2.5 MG/3 ML VIAL INH PRN (13:35)
[2024-10-09 14:50] VITALS: BP 152/52
[2024-10-09] MEDS ORDERED: Albuterol 2.5 MG/3 ML VIAL INH SCH (15:35)
[2024-10-09] MEDS ORDERED: Insulin Human Lispro 100 Units/ML 3ML Syringe SC SCH (16:30)
--- NOTE | 2024-10-09 18:12 | NUR ---
SHIFT SUMMARY PT IS A/Ox4 AND ABLE TO USE CALL LIGHT APPROPRIATELY. PT IS BEING DUIRESED PER EMAR. HE HAS BEEN A FIB ON TELE AT 75. HE USES BEDSIDE URNINAL INDEPENDENTLY AND IS A SBA WITH FWW TO THE TOILET. PT IS CURRENTLY ON ROOM AIR, BUT USES OXYGEN AT HOME NEEDED. PT HAS EPISODES WHERE HE FEELS SOB BUT HIS O2 SATS HAVE REMAINED IN THE HIGH 90'S. LIKELY WILL D/C TOMORROW ON [facility]. PT IS CURRENTLY SITTING ON THE SIDE OF HIS BED WITH FEET FLAT ON THE GROUND EATING DINNER. CALL LIGHT IS IN REACH. NO ACUTE NEEDS AT THIS TIME.
--- NOTE | 2024-10-09 18:24 | NUR ---
PLEASE REFER TO STUDENT NOTE FOR SHIFT SUMMARY THIS MEDICAID COLLECTION SPECIALIST HAS REVIEWED AND AGREES.
[2024-10-09 19:45] VITALS: BP 127/42
[2024-10-09] MEDS ORDERED: Insulin Glargine-Yfgn 100 Unit/mL 3 ML SYR SC SCH (21:00)
[2024-10-09 23:31] VITALS: BP 143/53
[2024-10-10 04:13] VITALS: BP 156/64
--- NOTE | 2024-10-10 05:59 | NUR ---
SHIFT SUMMARY NOC PT A/O X 3. FORGETFUL AND CONFUSED AT TIMES. VSS. HS CBG 184 10 UNITS GLARGINE PER EMAR GIVEN. PT INITIALLY REQUESTED CPAP FOR SLEEP AND REPORTED WEARING AT HOME, BUT WHEN RT CAME TO SET IT UP PT STATED THAT THEY HAVE NEVER USED ONE BEFORE. PT ON RA WITH CONTINUOS PULSE OXIMETRY SPO2 >95%. PT ON TELE AFIB @ 68 BPM, RHYTHM STRIP REVIEWED BY RN AND AGREED WITH RATE AND RHYTHM. DURING CHANGE OF SHIFT BEDSIDE REPORT PT STATED CONCERN ABOUT BEING DISCHARGED TODAY BECAUSE THEY DO NOT BELIEVE THAT THEY ARE STRONG ENOUGH TO GO BACK HOME YET. [facility] PT CURRENTLY RESTING WITH BED IN LOWEST POSITION, AND CALL LIGHT WITHIN REACH.
[2024-10-10 06:29] LABS: Hematocrit 31.3 % (37.0-53.0); Hemoglobin 10.3 g/dL (13.5-17.5); Mean Corpuscular HGB Conc 32.9 g/dL (31.5-36.5); Mean Corpuscular Volume 91 fL (80-100); Mean Platelet Volume 11.7 fL (9.1-12.4); Platelet Count 125 K/mm3 (150-400); RDW Coefficient Variation 15.5 % (11.7-14.2); RDW Standard Deviation 51.8 fL (35.1-46.3); Red Blood Cell Count 3.43 M/mm3 (4.30-5.90); White Blood Cell Count 8.28 K/mm3 (4.00-11.30)
[2024-10-10 07:13] LABS: Albumin, Blood 3.1 g/dL (3.4-5.0); Anion Gap 10 mmol/L (3-11); Blood Urea Nitrogen 56 mg/dL (8-24); Bun/Creatinine Ratio 38.6 (12.0-20.0); CO2, Blood 22 mmol/L (21-32); Calcium, Blood 8.3 mg/dL (8.5-10.1); Chloride, Blood 109 mmol/L (98-108); Creatinine, Blood 1.45 mg/dL (0.60-1.20); Glomerular Filtration Rate 50 (60-); Glucose, Blood 205 mg/dL (70-99); Phosphorus, Blood 4.7 mg/dL (2.5-4.9); Potassium, Blood 3.7 mmol/L (3.5-5.5); Sodium, Blood 137 mmol/L (136-145)
[2024-10-10 07:56] VITALS: BP 154/47
[2024-10-10] MEDS ORDERED: HUMALOG KW100 UNIT/1 SQ (14:55)
[2024-10-10 15:49] VITALS: BP 109/62
--- NOTE | 2024-10-10 17:14 | NUR ---
PT HAS BEEN AO AND COOPERATIVE OF CARE. PT SITTING UP IN BED DOING WELL ON ROOM AIR @ HIGH 90%. PT STILL STATES HE DOES NOT THINK HE FEELS WELL PT'S SISTER SEEMS TO VERBALLY KEEP TELLING HIM SOMETHING IS WRONG. PT'S VITALS ARE GOOD. CALL LIGHT IS IN REACH WILL CONTINUE TO MONITOR. PT ABLE TO MAKE ALL NEEDS KNOWN.
[2024-10-10 19:34] VITALS: BP 113/50
[2024-10-11 02:57] VITALS: BP 147/59
--- NOTE | 2024-10-11 05:32 | NUR ---
SHIFT SUMMARY NOC PT A/O X 4. PLEASANT AND COOPERATIVE WITH CARE. VSS. HS CBG 235 WITH 10 UNITS GLARGINE GIVEN PER EMAR. PT STRENGTH IS IMPROVING AND IS A SBA/FWW TO BATHROOM. CONTINUES TO BE ON RA SPO2 >95%, BUT SPO2 <90% WHEN AMBULATING AND HAS C/O OF SOB. PT POSSIBLE DISCHARGE TOMORROW WITH HOME HEALTH AND PT/OT. PT CURRENTLY RESTING WITH BED IN LOWEST POSITION, AND CALL LIGHT WITHIN REACH.
[2024-10-11 07:23] VITALS: BP 124/64
[2024-10-11 10:26] VITALS: BP 116/61
--- NOTE | 2024-10-11 12:35 | NUR ---
REVIEWED TICKET WRITER'S DOCUMENTION AND AGREEABLE WITH FINDINGS. DR. BOSWELL SHOWN R FOOT ULCER.
[2024-10-11 15:31] VITALS: BP 127/55
--- NOTE | 2024-10-11 15:33 | NUR ---
CALLED BOTH NUMBERS LISTED FOR THE PATIENT'S SISTER KWABENA. NO ANSWER.
--- NOTE | 2024-10-11 17:00 | NUR ---
DISCHARGE NOTE: WENT OVER DISCHARGE WITH PATIENT AND SISTER. PATIENT'S BELONGINGS COLLECTED, PATIENT WHEELED DOWN TO [facility]. NO SIGNS OR SYMPTOMS OF DISTRESS WITH DISCHARGE.
== END 2024-10-11 16:34 | disposition home health service (06) | DRG 291 ==
LOC: ER 02:05 → MEDS 02:06 → ENPENDDIS 10-10 12:57 → MEDS 10-11 16:34
PROVIDERS: Emergency Medicine; Internal Medicine; Student in an Organized Health Care Education/Training Program; ADMIT Family Medicine
DX: I13.0 Hypertensive heart and chronic kidney disease with heart failure and stage 1 through stage 4 chronic kidney disease, or unspecified chronic kidney disease (principal); I50.23 Acute on chronic systolic (congestive) heart failure; E87.1 Hypo-osmolality and hyponatremia; E87.29 Other acidosis; N17.9 Acute kidney failure, unspecified; J96.11 Chronic respiratory failure with hypoxia; I48.20 Chronic atrial fibrillation, unspecified; F03.94 Unspecified dementia, unspecified severity, with anxiety; Z66 Do not resuscitate; E66.9 Obesity, unspecified; J44.9 Chronic obstructive pulmonary disease, unspecified; I25.10 Atherosclerotic heart disease of native coronary artery without angina pectoris; E11.65 Type 2 diabetes mellitus with hyperglycemia; E11.22 Type 2 diabetes mellitus with diabetic chronic kidney disease; E78.5 Hyperlipidemia, unspecified; E87.6 Hypokalemia; D63.1 Anemia in chronic kidney disease; D69.6 Thrombocytopenia, unspecified; E83.39 Other disorders of phosphorus metabolism; N18.2 Chronic kidney disease, stage 2 (mild); E11.42 Type 2 diabetes mellitus with diabetic polyneuropathy; E11.621 Type 2 diabetes mellitus with foot ulcer; L97.519 Non-pressure chronic ulcer of other part of right foot with unspecified severity; G47.33 Obstructive sleep apnea (adult) (pediatric); Z88.0 Allergy status to penicillin; Z88.8 Allergy status to other drugs, medicaments and biological substances; Z91.041 Radiographic dye allergy status; Z79.899 Other long term (current) drug therapy; Z79.01 Long term (current) use of anticoagulants; Z79.51 Long term (current) use of inhaled steroids; I25.2 Old myocardial infarction; Z99.81 Dependence on supplemental oxygen; Z95.1 Presence of aortocoronary bypass graft; Z98.42 Cataract extraction status, left eye; Z98.41 Cataract extraction status, right eye; Z87.891 Personal history of nicotine dependence; Z99.89 Dependence on other enabling machines and devices; Z95.5 Presence of coronary angioplasty implant and graft; Z68.23 Body mass index [BMI] 23.0-23.9, adult
CPT/HCPCS: 36415; 71045; 80048; 80053; 80061; 80069; 82010; 82607; 82728; 82746; 82803; 82947; 83540; 83550; 83735; 83880; 85025; 85027; 94640; 94664; 94760; 94761; 94762; 96374; 96376; 97116; 97162; 99285-25; A9270; G0378; J0360; J1815; J1938

== ENCOUNTER 2025-02-14 04:05 | Inpatient (IN) | payer MEDICARE, BC ==
[~2025-02-14] VITALS: Ht 188 cm; Wt 82.8 kg
[~2025-02-14 04:05] MED LIST changes: +BANOPHEN25 MG PO; +BASAGLAR K100 UNIT/8 SC; +HUMALOG KW100 UNIT/1 SQ; +TRELEGY ELLIPT1 EAC1 INH
[2025-02-14] MEDS ORDERED: Ipratropium/Albuterol SulF 2.5-0.5MG/3 ML Amp INH ONE (04:20)
[2025-02-14 04:33] LABS: BASOPHILS ABSOLUTE AUTO 0.04 K/mm3 (0.00-0.23); BASOPHILS PERCENT AUTO 1 % (0-2); EOSINOPHILS ABSOLUTE AUTO 0.19 K/mm3 (0.00-0.68); EOSINOPHILS PERCENT AUTO 3 % (0-6); Hematocrit 34.8 % (37.0-53.0); Hemoglobin 10.8 g/dL (13.5-17.5); IMMATURE GRAN ABSOLUTE AUTO 0.02 K/mm3 (0.00-0.10); IMMATURE GRAN PERCENT AUTO 0 % (0-1); LYMPHOCYTES ABSOLUTE AUTO 1.97 K/mm3 (0.84-5.20); LYMPHOCYTES PERCENT AUTO 29 % (21-46); MONOCYTES ABSOLUTE AUTO 0.44 K/mm3 (0.16-1.47); MONOCYTES PERCENT AUTO 6 % (4-13); Mean Corpuscular HGB Conc 31.0 g/dL (31.5-36.5); Mean Corpuscular Volume 96 fL (80-100); NEUTROPHILS ABSOLUTE AUTO 4.26 K/mm3 (1.96-9.15); NEUTROPHILS PERCENT AUTO 62 % (41-73); NRBC ABSOLUTE 0.00 K/mm3 (0.00-0.02); NRBC Auto 0.0 /100 WBC (0.0-0.2); Platelet Count 116 K/mm3 (150-400); RDW Coefficient Variation 15.7 % (11.7-14.2); RDW Standard Deviation 55.3 fL (35.1-46.3)
[2025-02-14] MEDS ORDERED: CefTRIAXone Sodium 1,000 MG in NS 100 ML IV ONE (04:55)
[2025-02-14 05:00] LABS: Alanine Aminotransfer (ALT/SGP 45.0 U/L (12-78); Albumin, Blood 3.1 g/dL (3.4-5.0); Albumin/Globulin Ratio 0.8 (0.8-1.8); Anion Gap 4.0 mmol/L (3-11); Aspartate Aminotrans (AST/SGOT 29.0 U/L (12-37); Bilirubin, Total 0.5 mg/dL (0.1-1.0); Blood Urea Nitrogen 20.0 mg/dL (8-24); CO2, Blood 27.0 mmol/L (21-32); Calcium, Blood 7.6 mg/dL (8.5-10.1); Chloride, Blood 114.0 mmol/L (98-108); Creatinine, Blood 1.25 mg/dL (0.60-1.20); Globulin, Blood 3.9 g/dL (2.2-4.0); Glucose, Blood 289.0 mg/dL (70-99); Magnesium, Blood 1.9 mg/dL (1.6-2.4); Potassium, Blood 5.4 mmol/L (3.5-5.5); Sodium, Blood 140.0 mmol/L (136-145); Total Protein, Blood 7.0 g/dL (6.4-8.2)
[2025-02-14] MEDS ORDERED: Ipratropium/Albuterol SulF 2.5-0.5MG/3 ML Amp INH PRN (05:50)
[2025-02-14] MEDS ORDERED: FLU VACC TS2025(65UP)/MF59C/PF 45 MCG/0.5 ML SYRINGE IM SCH (05:50)
[2025-02-14] MEDS ORDERED: Ondansetron HCl 2 MG / ML 2ML Vial IV PRN (05:55)
[2025-02-14] MEDS ORDERED: HydrALAZINE HCl 20 MG / ML 1ML Vial IV PRN (06:00)
[2025-02-14 06:01] LABS: Influenza A, PCR NEGATIVE (NEGATIVE); Influenza B, PCR NEGATIVE (NEGATIVE); Resp Syncytial Virus, PCR NEGATIVE (NEGATIVE); SARS-Cov-2 (COVID-19) PCR, MMC NEGATIVE (NEGATIVE)
[2025-02-14] MEDS ORDERED: LevoFLOXacin 750 MG/D5W 150ML 150 ML IV SCH (06:19)
[2025-02-14] MEDS ORDERED: Insulin Human Lispro 100 Units/ML 3ML Syringe SC SCH (07:30)
[2025-02-14] MEDS ORDERED: Enoxaparin 40 MG/0.4 ML SYR SC SCH (09:00)
[2025-02-14 09:37] VITALS: BP 187/72
--- NOTE | 2025-02-14 10:46 | NUR ---
PT IS A NEW ADMIT THIS MORNING. REPORT RECIEVED FROM ELI Alvarez RN. THE PT ARRIVED VIA GURNEY AND WAS ABLE TO STAND WITH SBA TO SIT ON THE BED. THE PT IS ON HIS BASELINE USE OF OXYGEN, 2L NC. THE PT DOES EXPRESS SOB WITH ACTIVITY, IMPROVED WHEN RESTING. ON TELE HE IS AFIB 80'S. BP ELEVATED. AWAITING FOR [facility] TO FAX THE PT'S HOME MEDICATION LIST AT THIS TIME TO UPDATE THE PT'S HOME MED LIST. THE PT DENIES ANY ANGINA OR CHEST PRESSURE. HE WAS ABLE TO USE THE BSC SHORTLY AFTER ARRIVING TO THE ROOM. THIS RN ATTEMPTED TO CALL THE PT'S SISTER, BUT WAS UNABLE TO GET AHOLD OF HER. THE PT HAS NO COMPLAINTS AT THIS TIME. CALL LIGHT IN REACH. KEELYS PLACED IN ONCE PATIENT BELONGING BAG. THE PT DOES STATE HE HAS A FULL SET OF DENTURES THAT ARE AT HIS HOUSE. SEE NOTES FOR UPDATES.
[2025-02-14 11:27] VITALS: BP 173/54
[2025-02-14] MEDS ORDERED: DOCU100 PO (11:39)
[2025-02-14] MEDS ORDERED: ALEN70 PO (11:39)
[2025-02-14] MEDS ORDERED: NITR.4SL SL (11:40)
[2025-02-14 13:24] VITALS: BP 141/39
[2025-02-14 15:19] VITALS: BP 161/59
--- NOTE | 2025-02-14 16:55 | NUR ---
END OF SHIFT SUMMARY THE PT REMAINS A&OX3-4, HE IS 1P SBA FOR TRANSFERING, AND HAS BEEN UP IN THE CHAIR FOR MEALS. ON TELE THE PT HAS BEEN AFIB 47-80 S. HE WAS RUNNING LOW 50 S ABOUT TWO HOURS AFTER RECEIVING HIS HOME METOPROLOL DOSE. HOME DOSE DECREASED TO 25MG BID PER DR. VIDAL. PT ASYMPTOMATIC WITH LON AFIB. THE PT S BP HAS IMPROVED AFTER RESTARTING HOME ANTIHYPERTENSIVES. THE PT REMAINS ON HIS BASELINE 2L NC. HE HAD ONE EPISODE OF SOB AFTER WAKING UP FROM A NAP AND WAS GIVEN A BREATHING TREATMENT PER RT. SOB HAS SUBSIDED. THE PT S SISTER CALL AND WAS UPDATED ON CARE BY THE PT. SEE NOTES FOR UPDATES
[2025-02-14 20:01] VITALS: BP 151/41
[2025-02-14] MEDS ORDERED: Insulin Glargine-Yfgn 100 Unit/mL 3 ML SYR SC SCH (21:00)
[2025-02-14] MEDS ORDERED: Insulin Glargine 100 Unit/ML 3 ML SYR SC SCH (21:00)
[2025-02-15 00:10] VITALS: BP 135/56
[2025-02-15 04:38] LABS: BASOPHILS ABSOLUTE AUTO 0.04 K/mm3 (0.00-0.23); BASOPHILS PERCENT AUTO 1 % (0-2); EOSINOPHILS ABSOLUTE AUTO 0.16 K/mm3 (0.00-0.68); EOSINOPHILS PERCENT AUTO 2 % (0-6); Hematocrit 33.3 % (37.0-53.0); Hemoglobin 10.5 g/dL (13.5-17.5); IMMATURE GRAN ABSOLUTE AUTO 0.02 K/mm3 (0.00-0.10); IMMATURE GRAN PERCENT AUTO 0 % (0-1); LYMPHOCYTES ABSOLUTE AUTO 2.20 K/mm3 (0.84-5.20); LYMPHOCYTES PERCENT AUTO 31 % (21-46); MONOCYTES ABSOLUTE AUTO 0.45 K/mm3 (0.16-1.47); MONOCYTES PERCENT AUTO 6 % (4-13); Mean Corpuscular HGB Conc 31.5 g/dL (31.5-36.5); Mean Corpuscular Volume 96 fL (80-100); NEUTROPHILS ABSOLUTE AUTO 4.26 K/mm3 (1.96-9.15); NEUTROPHILS PERCENT AUTO 60 % (41-73); NRBC ABSOLUTE 0.00 K/mm3 (0.00-0.02); NRBC Auto 0.0 /100 WBC (0.0-0.2); Platelet Count 109 K/mm3 (150-400); RDW Coefficient Variation 15.6 % (11.7-14.2); RDW Standard Deviation 54.7 fL (35.1-46.3)
[2025-02-15 05:05] VITALS: BP 129/67
[2025-02-15] MEDS ORDERED: Saline Nasal Spray 45 ML PRN (05:10)
[2025-02-15 05:15] LABS: Alanine Aminotransfer (ALT/SGP 34.0 U/L (12-78); Albumin, Blood 3.0 g/dL (3.4-5.0); Albumin/Globulin Ratio 0.8 (0.8-1.8); Anion Gap 5.0 mmol/L (3-11); Aspartate Aminotrans (AST/SGOT 16.0 U/L (12-37); Bilirubin, Total 0.5 mg/dL (0.1-1.0); Blood Urea Nitrogen 24.0 mg/dL (8-24); CO2, Blood 28.0 mmol/L (21-32); Calcium, Blood 8.2 mg/dL (8.5-10.1); Chloride, Blood 111.0 mmol/L (98-108); Creatinine, Blood 1.36 mg/dL (0.60-1.20); Globulin, Blood 3.7 g/dL (2.2-4.0); Glucose, Blood 109.0 mg/dL (70-99); Potassium, Blood 4.4 mmol/L (3.5-5.5); Sodium, Blood 140.0 mmol/L (136-145); Total Protein, Blood 6.7 g/dL (6.4-8.2)
[2025-02-15] MEDS ORDERED: CefTRIAXone Sodium 1,000 MG in NS 100 ML IV SCH (06:00)
--- NOTE | 2025-02-15 06:03 | NUR ---
SHIFT SUMMARY PATIENT A/OX4. ABLE TO MAKE NEEDS KNOWN. OCCASIONAL SOB, RECEIVED NEB TREATMENT X1 FROM RT. PT SPEAKS IN FULL SENTENCES. VERY PLEASANT AND COOPERATIVE WITH ALL CARE. UP TO BSC WITH 1 PERSON ASSIST. BM THIS SHIFT. O2 AT BASELINE 2L/MIN NC - HUMIDIFIED. PT C/O NASAL CONGESTION, ORDER PLACED FOR SALINE SPRAY AWAITING PHARMACY TO SEND IT TO UNIT. NO MAJOR INCIDENTS THIS SHIFT. CALL LIGHT IN REACH AND BED IN LOWEST POSITION.
[2025-02-15 11:42] VITALS: BP 135/61
--- NOTE | 2025-02-15 11:43 | NUR ---
Pt c/o difficulty breathing and mild chest pressure about 10 minutes before I came into the room. No diaphoresis and vital signs are stable. EKG done, no significant changes noted.
--- NOTE | 2025-02-15 12:43 | NUR ---
Spoke with Dr. Gan regarding pt's 2 episodes of chest pressure and reported dyspnea. Stat Troponin being drawn at this time. They were both self resolving, and mild per pt account.
[2025-02-15 13:19] VITALS: BP 150/53
--- NOTE | 2025-02-15 13:27 | NUR ---
Dr. Gan here to see the patient. EKGs reviewed
--- NOTE | 2025-02-15 13:50 | NUR ---
Pt reports no further chest pain nor dyspnea.
--- NOTE | 2025-02-15 14:38 | NUR ---
Spiritual Care Visit. Pt. is awake and sitting up on the side of his bed. Pt. is pleasant. Facilitate a life review and listen with interest and empathy. Pt. verbalizes that he is not certain was his prognosis is. Matters of joni and belief are considered. Pt. displayed evidence of being encouraged. Prayed for the Pt. Pt. verbalzied gratitude for the spiritual care visit, but requested this steward/stewardess third to let the nursing staff know that he is hungry.
--- NOTE | 2025-02-15 17:23 | NUR ---
Pt sitting on the side of the bed; states that his breathing is feeling a little bit better.
--- NOTE | 2025-02-15 17:24 | NUR ---
pt is c/o leg cramps. Dr. Gan notified.
[2025-02-15] MEDS ORDERED: Mag Sulfate 1 GM/D5% 100ML 100 ML IV ONE (17:30)
[2025-02-15 19:29] VITALS: BP 118/70
[2025-02-15 23:51] VITALS: BP 135/71
--- NOTE | 2025-02-16 00:05 | NUR ---
PT HERE VIA WHEELCHAIR FROM PCU. PT IS SBA TO MEDICAL FLOOR BED. PT IS ALERT AND ORIENTED, PALE IN COLOR. PT ON 5L OXYGEN VIA NC. RESPIRATORY RATE ELEVATED. PT IS REQUESTING WATER AND A SNACK - PROVIDED. I WILL REPORT OFF THE ELEVATED RESPIRATORY RATE TO PRIMARY NURSE. OTHERWISE, VSS. FOOD AND FLUID PROVIDED. CALL LIGHT WITHIN REACH. BED IN LOW POSITION.
--- NOTE | 2025-02-16 00:10 | NUR ---
PT DENIES ANY COMPLAINTS OF PAIN OR DISCOMFORT. PT ASKING FOR REMOTE TO WATCH TV.
[2025-02-16 00:19] VITALS: BP 127/66
--- NOTE | 2025-02-16 01:07 | NUR ---
PATIENT TRANSFER FROM U 15. REPORT TAKEN FROM KANDY PEDROZA. PATIENT BELONGINGS WITH PATIENT. TELE AFIB 79. ON 5L O2 NC. SOB W/EXERTION. WCTM.
--- NOTE | 2025-02-16 04:08 | NUR ---
SHIFT SUMMARY PATIENT HAD NO ACUTE CHANGES SINCE TRANSFER FROM PCU 15. ON 4-5L O2 NC. TELE MONITOR AFIB 79. ALERT ORIENTED WITH CONFUSION AT TIMES. ONE ASSIST TO BSC. SOB W/EXERTION. CALL LIGHT IN REACH. BED IN LOWEST POSITION AND ALARM ON. WILL CONTINUE TO MONITOR UNTIL DAY SHIFT NURSE ASSUMES CARE.
[2025-02-16 04:10] VITALS: BP 117/77
[2025-02-16 07:10] LABS: Anion Gap 6.0 mmol/L (3-11); Blood Urea Nitrogen 36.0 mg/dL (8-24); CO2, Blood 28.0 mmol/L (21-32); Calcium, Blood 8.6 mg/dL (8.5-10.1); Chloride, Blood 107.0 mmol/L (98-108); Creatinine, Blood 1.43 mg/dL (0.60-1.20); Glucose, Blood 109.0 mg/dL (70-99); Potassium, Blood 3.7 mmol/L (3.5-5.5); Sodium, Blood 137.0 mmol/L (136-145)
[2025-02-16 08:06] VITALS: BP 123/108
[2025-02-16 11:01] VITALS: BP 97/55
[2025-02-16 15:23] VITALS: BP 138/51
--- NOTE | 2025-02-16 16:15 | NUR ---
RETURN CALL PLACED TO FAMILY, LEFT GENERAL VOICEMAIL MESSAGE.
--- NOTE | 2025-02-16 18:27 | NUR ---
PATIENT UP TO BATHROOM WITH STAND BY ASSIST. ABLE TO MAKE NEEDS KNOWN. PATIENT HAS COMPLAINTS OFF AND ON TODAY OF FEELING LIKE HE ISN'T GETTING OXYGEN. VERIFIED METER ON WALL WAS WORKING, PATIENT WAS ABLE TO PUT INTO HIS MOUTH TO VERIFY FLOW. O2 READINGS HIGH TO MID 90'S. PATIENT ENCOURAGED TO TRY AND RELAX IN BED FOR A WHILE HE HAS BEEN AT THE SIDE OF THE BED MOST OF DAY. PATIENT AGREEABLE FOR AFTER DINNER.
[2025-02-16 20:34] VITALS: BP 125/53
[2025-02-16] MEDS ORDERED: Insulin Glargine 100 Unit/ML 3 ML SYR SC SCH (21:00)
--- NOTE | 2025-02-16 22:18 | NUR ---
PATIENT CONFUSED ASKING FOR TYLENOL MULTIPLE TIMES AND REMINDED MULTIPLE TIMES IT IS NOT AVAILABLE AT THIS TIME. HE WAS GIVEN A TIME THAT IT IS BUT NOT ABLE TO REMEMBER. ON 4L O2 NC AND PULLS OXYGEN OFF THAN REPORTS HE FEELS HE IS NOT GETTING ENOUGH OXYGEN. PATIENT ASSISTED IN PUTTING OXYGEN NC BACK ON. WCTM.
[2025-02-17] VITALS (7 sets, daily range): BP systolic 110–158; BP diastolic 48–94
--- NOTE | 2025-02-17 01:28 | NUR ---
Flonase Nasal [place] Patient c/o difficulty breathing r/t stuffy nose and states that he takes an inhaler that he usually sprays in his nose. Upon review of home meds, it appears patient takes flonase. Received a T.O. from Dr. Hieu Naik to resume home medication Flonase on an as needed basis for congestion/allergy. Order entered as Flonase 2 sprays each nostril once daily as needed for congestion/allergy. Primary RN updated.
[2025-02-17] MEDS ORDERED: Fluticasone 0.05% Nasal Spray PRN (01:30)
--- NOTE | 2025-02-17 04:06 | NUR ---
SHIFT SUMMARY PATIENT CONFUSED THROUGH OUT THE SHIFT REPEATING SAME QUESTIONS WHEN ANSWERED EACH TIME. CBG 338 AFTER EATING FAST FOOD FAMILY BROUGHT IN. PATIENT EDUCATED ON EATING FAST FOOD WITH HX OF T2DM. PIV INTACT. TELE MONITOR AFIB 76. ON 4L O2 NC. FLONAISE ORDERED REPORTING NASAL PASSAGES STARTING TO GET CONGESTED. ON 4L O2 NC AND 2L BASELINE. AWAKE MOST OF THE SHIFT REPORTING DOESN'T SLEEP UNTIL AFTER MIDNIGHT. DENIES CHEST PAIN AND N/V. VSS/AFEBRILE. SOB WITH EXERTION/ANXIETY. CALL LIGHT IN REACH. BED IN LOWEST POSITION. WILL CONTINUE TO MONITOR UNTIL DAY SHIFT NURSE ASSUMES CARE.
--- NOTE | 2025-02-17 05:25 | NUR ---
PATIENT REPORT FEELING SOB. RT CALLED AND IN FOR BREATHING TX. ON 4L O2 NC. PATIENT ANXIOUS THE WHOLE SHIFT AND HAS NOT SLEPT. REMAINS CONFUSED STILL REPEATING SAME QUESTIONS WHEN ALREADY ANSWERED. WCTM.
[2025-02-17] MEDS ORDERED: Torsemide 20 MG TAB PO SCH (09:00)
[2025-02-18 03:21] VITALS: BP 106/62
--- NOTE | 2025-02-18 04:10 | NUR ---
SHIFT SUMMARY PATIENT LESS ANXIOUS THIS SHIFT. AXOX 3 FORGETFUL MOST OF THE TIME REPEATING QUESTIONS. DENIES CHEST PAIN AND N/V. SOB WITH EXERTION AND ANXIETY. FLONAISE GIVEN PER EMAR REPORTING IT HELPS BREATH. PIV INTACT. TELE MONITOR A-FLUTTER 85. ON 4-5 L O2 AND 2L BASELINE. CBG 248. CALL LIGHT IN REACH. BED IN LOWEST POSITION AND ALARM ON. WILL CONTINUE TO MONITOR UNTIL DAY SHIFT NURSE ASSUMES CARE.
[2025-02-18 05:53] LABS: BASOPHILS ABSOLUTE AUTO 0.03 K/mm3 (0.00-0.23); BASOPHILS PERCENT AUTO 0 % (0-2); EOSINOPHILS ABSOLUTE AUTO 0.13 K/mm3 (0.00-0.68); EOSINOPHILS PERCENT AUTO 2 % (0-6); Hematocrit 34.4 % (37.0-53.0); Hemoglobin 11.4 g/dL (13.5-17.5); IMMATURE GRAN ABSOLUTE AUTO 0.02 K/mm3 (0.00-0.10); IMMATURE GRAN PERCENT AUTO 0 % (0-1); LYMPHOCYTES ABSOLUTE AUTO 2.07 K/mm3 (0.84-5.20); LYMPHOCYTES PERCENT AUTO 26 % (21-46); MONOCYTES ABSOLUTE AUTO 0.62 K/mm3 (0.16-1.47); MONOCYTES PERCENT AUTO 8 % (4-13); Mean Corpuscular HGB Conc 33.1 g/dL (31.5-36.5); Mean Corpuscular Volume 90 fL (80-100); NEUTROPHILS ABSOLUTE AUTO 5.23 K/mm3 (1.96-9.15); NEUTROPHILS PERCENT AUTO 65 % (41-73); NRBC ABSOLUTE 0.00 K/mm3 (0.00-0.02); NRBC Auto 0.0 /100 WBC (0.0-0.2); Platelet Count 136 K/mm3 (150-400); RDW Coefficient Variation 15.3 % (11.7-14.2); RDW Standard Deviation 50.4 fL (35.1-46.3)
[2025-02-18 06:27] LABS: Anion Gap 9.0 mmol/L (3-11); Blood Urea Nitrogen 56.0 mg/dL (8-24); CO2, Blood 28.0 mmol/L (21-32); Calcium, Blood 8.4 mg/dL (8.5-10.1); Chloride, Blood 99.0 mmol/L (98-108); Creatinine, Blood 1.79 mg/dL (0.60-1.20); Glucose, Blood 107.0 mg/dL (70-99); Potassium, Blood 3.9 mmol/L (3.5-5.5); Sodium, Blood 132.0 mmol/L (136-145)
[2025-02-18 07:41] VITALS: BP 126/60
[2025-02-18 11:08] VITALS: BP 114/48
[2025-02-18 16:42] VITALS: BP 106/55
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
[2025-02-18 19:47] VITALS: BP 124/66
[2025-02-19] VITALS (8 sets, daily range): BP systolic 80–132; BP diastolic 55–106
--- NOTE | 2025-02-19 05:07 | NUR ---
Shift Summary Patient having difficulty staying a sleep and often wakes up complaining of inability to breathe d/t congestion and requesting for a nasal decongestant. This occurs every hour or sooner. Positive for hx of COPD & BRII, noted to have CPAP ordered but signed a refusal form at time of admission. Patient states he can not tolerate CPAP. Upon entering room, patient has 2L NC on, but sleeping in a semi-urias's position w/ HOB approx 60 degrees and pretty much head dropped forward with chin touching chest closing airway almost completely. Woke patient up and tried to assist w/ repositioning but patient refused. Current saline spray order changed from BID PRN to Q1H PRN per T.O. from Dr. Hieu Naik. Poor sleep hygiene. Tele: Aflutter 60s. AOx3. Pleasant/cooperative/anxious.
[2025-02-19] MEDS ORDERED: Saline Nasal Spray 45 ML PRN (06:00)
--- NOTE | 2025-02-19 07:19 | NUR ---
0600 Cardizem Not Given Parameters are inconsistent and unclear so 0600 Cardizem PO not given this morning because rate/rhythm was Afib 60-70's per quality assurance monitor chassis. Reported to oncoming RN to please clarify with the Hospitalist.
--- NOTE | 2025-02-19 10:10 | NUR ---
Spiritual Care Visit. Pt. is pleasant and sitting up in a recliner when he welcomes my visit. Facilitated an update as this prosthetist saw this Pt. last week. Pt. verbalizes an expectation that he will remain admitted in this hospital for a few days. Sought ot normalize the Pt. experience and then onsidered matters of joni and belief. Listen with empathy and a calming presence. Prayed with Pt. Pt. verbalized gratitude for the spiritual care visit and welcomed this prosthetist to return.
[2025-02-19 12:50] LABS: Anion Gap 9.0 mmol/L (3-11); Blood Urea Nitrogen 61.0 mg/dL (8-24); CO2, Blood 31.0 mmol/L (21-32); Calcium, Blood 8.8 mg/dL (8.5-10.1); Chloride, Blood 96.0 mmol/L (98-108); Creatinine, Blood 1.84 mg/dL (0.60-1.20); Glucose, Blood 150.0 mg/dL (70-99); Potassium, Blood 4.1 mmol/L (3.5-5.5); Sodium, Blood 132.0 mmol/L (136-145)
--- NOTE | 2025-02-19 17:36 | NUR ---
SHIFT SUMMARY PT AOX4, FORGETFUL AT TIMES. BA ON. UP TO THE CHAIR/BR WITH 1 ASSIST SBA. USES THE URINAL OCCASSIONALLY. NO ACUTE ISSUES. REMAINS ON 2L NC. CALLS AND MAKES HIS NEEDS KNOWN. POSSIBLE DC TOMORROW. REPOSITIONS SELF IN BED. CALL LIGHT WITHIN REACH, BED LOCKED AND IN THE LOWEST POSITION. WILL REPORT TO ONCOMING NURSE.
[2025-02-20 04:00] VITALS: BP 104/62
[2025-02-20 06:15] LABS: BASOPHILS ABSOLUTE AUTO 0.05 K/mm3 (0.00-0.23); BASOPHILS PERCENT AUTO 1 % (0-2); EOSINOPHILS ABSOLUTE AUTO 0.33 K/mm3 (0.00-0.68); EOSINOPHILS PERCENT AUTO 5 % (0-6); Hematocrit 35.6 % (37.0-53.0); Hemoglobin 11.7 g/dL (13.5-17.5); IMMATURE GRAN ABSOLUTE AUTO 0.01 K/mm3 (0.00-0.10); IMMATURE GRAN PERCENT AUTO 0 % (0-1); LYMPHOCYTES ABSOLUTE AUTO 2.12 K/mm3 (0.84-5.20); LYMPHOCYTES PERCENT AUTO 32 % (21-46); MONOCYTES ABSOLUTE AUTO 0.67 K/mm3 (0.16-1.47); MONOCYTES PERCENT AUTO 10 % (4-13); Mean Corpuscular HGB Conc 32.9 g/dL (31.5-36.5); Mean Corpuscular Volume 91 fL (80-100); NEUTROPHILS ABSOLUTE AUTO 3.45 K/mm3 (1.96-9.15); NEUTROPHILS PERCENT AUTO 52 % (41-73); NRBC ABSOLUTE 0.00 K/mm3 (0.00-0.02); NRBC Auto 0.0 /100 WBC (0.0-0.2); Platelet Count 129 K/mm3 (150-400); RDW Coefficient Variation 15.3 % (11.7-14.2); RDW Standard Deviation 50.6 fL (35.1-46.3)
[2025-02-20 06:54] LABS: Anion Gap 8.0 mmol/L (3-11); Blood Urea Nitrogen 65.0 mg/dL (8-24); CO2, Blood 29.0 mmol/L (21-32); Calcium, Blood 8.2 mg/dL (8.5-10.1); Chloride, Blood 99.0 mmol/L (98-108); Creatinine, Blood 1.87 mg/dL (0.60-1.20); Glucose, Blood 126.0 mg/dL (70-99); Potassium, Blood 3.8 mmol/L (3.5-5.5); Sodium, Blood 132.0 mmol/L (136-145)
[2025-02-20 07:27] VITALS: BP 120/59
--- NOTE | 2025-02-20 08:07 | NUR ---
SHIFT SUMMARY A/Ox4, FORGETFUL. VSS ON 2L. PT REPORTS BL SOLE OF FEET PAIN, PRN TYLENOL MILDLY EFFECTIVE. NO ACUTE CHANGES OVERNIGHT. PT SNACKING FREQUENTLY THIS SHIFT (CHEESE AND CRACKERS). 1500 ML FREE WATER RESTRICTION IN PLACE.
[2025-02-20] MEDS ORDERED: Torsemide 20 MG TAB PO SCH (09:00)
[2025-02-20 11:38] VITALS: BP 122/58
[2025-02-20 15:48] VITALS: BP 101/54
--- NOTE | 2025-02-20 18:16 | NUR ---
SHIFT SUMMARY PT AOX4, FORGETFUL. NO ACUTE EVENTS. PT ANXIOUS TO LEAVE THIS AM, DR. OSBORN AGREEABLE FOR HIM TO STAY ONE MORE NIGHT. HE REMAINS ON HIS BASELINE OXYGEN OF 2L NC. HE CALLS AND MAKES HIS NEEDS KNOWN. REPOSITIONS SELF IN BED. TELE DC'D THIS SHIFT. FAMILY UPDATED. MEDICATED FOR PAIN PER THE EMAR. CALL LIGHT WITHIN REACH, BED LOCKED AND IN THE LOWEST POSITION. WILL REPORT TO ONCOMING NURSE.
[2025-02-20 20:31] VITALS: BP 126/58
[2025-02-21 06:23] VITALS: BP 97/67
[2025-02-21 07:23] VITALS: BP 120/51
--- NOTE | 2025-02-21 07:24 | NUR ---
SHIFT SUMMARY A/Ox4, FORGETFUL. VSS ON 2L. PT DENIES PAIN, SOB, NAUSEA. REPORTS NASAL CONGESTION, PRN FLONASE EFFECTIVE. PT UP TO TOILET WITH SBA. NO ACUTE CHANGES OVERNIGHT. 1500 ML FREE WATER RESTRICTION IN PLACE. PT REPORTS SLEEPING BETTER OVERNIGHT.
[2025-02-21 15:37] VITALS: BP 104/46
--- NOTE | 2025-02-21 18:18 | NUR ---
SHIFT SUMMARY PT AOX4, FORGETFUL. NO ACUTE CHANGES THIS SHIFT. PT REMAINS ON 2L NC WHICH IS HIS BASELINE. MEDICATED FOR PAIN PER THE EMAR. SBA WITH THE FWW TO THE BR, PT CALLS. REPOSITIONS SELF IN BED. POSSIBLE DC TOMORROW. FAMILY UPDATED. CALL LIGHT WITHIN REACH, BED LOCKED AND IN THE LOWEST POSITION. WILL REPORT TO ONCOMING NURSE.
[2025-02-21 20:04] VITALS: BP 101/82
[2025-02-22 04:38] VITALS: BP 125/58
--- NOTE | 2025-02-22 05:59 | NUR ---
SHIFT SUMMARY PT WEANED FROM 1L NC TO ROOM AIR WITH O2 SATS IN THE HIGH 90'S. AFTER AMBULATING TO BATHROOM AND BACK, PT C/O FEELING SOB, BUT O2 SATS REMAINED UNCHANGED. ENCOURAGED PT TO TAKE DEEP BREATHES AND REINFORCED PACING ACTIVITIES WHEN AT HOME. PT MEDICATED FOR STUFFY NOSE WITH OCEAN SPRAY PER EMAR, AND MEDICATED FOR HEADACHE WITH TYLENOL PER EMAR. PT SLEPT INTERMITTENTLY DURING THE NIGHT.
[2025-02-22 06:51] LABS: Anion Gap 10.0 mmol/L (3-11); Blood Urea Nitrogen 89.0 mg/dL (8-24); CO2, Blood 24.0 mmol/L (21-32); Calcium, Blood 8.0 mg/dL (8.5-10.1); Chloride, Blood 103.0 mmol/L (98-108); Creatinine, Blood 2.1 mg/dL (0.60-1.20); Glucose, Blood 155.0 mg/dL (70-99); Potassium, Blood 4.3 mmol/L (3.5-5.5); Sodium, Blood 133.0 mmol/L (136-145)
[2025-02-22 07:19] VITALS: BP 106/49
[2025-02-22] MEDS ORDERED: Darbepoetin (Pharmacy Consult) SC SCH (10:05)
[2025-02-22] MEDS ORDERED: BUSP5 PO (13:54)
--- NOTE | 2025-02-22 14:01 | NUR ---
DISCHARGE NOTE: A&OX4 PRIOR TO D/C. PT BELONGINGS GATHERED. ASSISTED WITH DRESSING. PROVIDED PT WITH DISCHARGE EDUCATION AND INFORMATION. MEDICATIONS FAXED TO [facility]. IV REMOVED PRIOR TO LEAVING. ESCORTED OUT VIA W/C BY STAFF.
== END 2025-02-22 14:11 | disposition home health service (06) | DRG 280 ==
LOC: ER 04:05 → MEDS 05:48 → PCU 05:48 → MEDS 02-16 00:07 → ENPENDDIS 02-22 11:11 → MEDS 02-22 14:11
PROVIDERS: Internal Medicine; Student in an Organized Health Care Education/Training Program; ADMIT Internal Medicine
DX: I13.0 Hypertensive heart and chronic kidney disease with heart failure and stage 1 through stage 4 chronic kidney disease, or unspecified chronic kidney disease (principal); I50.33 Acute on chronic diastolic (congestive) heart failure; I21.A1 Myocardial infarction type 2; J96.21 Acute and chronic respiratory failure with hypoxia; J84.9 Interstitial pulmonary disease, unspecified; I48.20 Chronic atrial fibrillation, unspecified; N17.9 Acute kidney failure, unspecified; E87.1 Hypo-osmolality and hyponatremia; N25.81 Secondary hyperparathyroidism of renal origin; I25.10 Atherosclerotic heart disease of native coronary artery without angina pectoris; E66.9 Obesity, unspecified; Z68.23 Body mass index [BMI] 23.0-23.9, adult; I16.0 Hypertensive urgency; J44.9 Chronic obstructive pulmonary disease, unspecified; N18.30 Chronic kidney disease, stage 3 unspecified; G47.33 Obstructive sleep apnea (adult) (pediatric); Z23 Encounter for immunization; E11.22 Type 2 diabetes mellitus with diabetic chronic kidney disease; E11.65 Type 2 diabetes mellitus with hyperglycemia; E83.51 Hypocalcemia; D69.6 Thrombocytopenia, unspecified; F41.9 Anxiety disorder, unspecified; Z95.1 Presence of aortocoronary bypass graft; Z79.4 Long term (current) use of insulin; Z79.899 Other long term (current) drug therapy; Z79.84 Long term (current) use of oral hypoglycemic drugs; Z88.0 Allergy status to penicillin; Z88.8 Allergy status to other drugs, medicaments and biological substances; Z91.041 Radiographic dye allergy status; I25.2 Old myocardial infarction; Z79.01 Long term (current) use of anticoagulants; Z98.42 Cataract extraction status, left eye; Z98.41 Cataract extraction status, right eye
CPT/HCPCS: 36415; 71045; 76770; 80048; 80053; 82947; 83735; 83880; 84145; 84484; 85025; 87040; 87637; 90653; 93005; 93010; 94640; 94664; 94760; 94761; 94762; 97110; 97116; 97161; 97165; 97530; 97535; 99285-25; A9270; C8929; J0696; J1650; J1815; J1938; J1956; J3475; Q9957

== ENCOUNTER 2025-03-20 07:21 | Inpatient (IN) | payer MEDICARE, BC ==
[2025-03-20] VITALS (36 sets, daily range): BP systolic 77–188; BP diastolic 42–115
[~2025-03-20] VITALS: Ht 188 cm; Wt 78.4 kg
[~2025-03-20 07:21] MED LIST changes: +ALEN70 PO; +BUSP5 PO; +LOSA25 PO; -LOSARTAN POTASS50 M1 PO; +NITR.4SL SL
[2025-03-20] MEDS ORDERED: LORazepam 2 MG/ML 1ML Injection IV ONE ×2 (07:35→13:00)
[2025-03-20 07:48] LABS: BASOPHILS ABSOLUTE AUTO 0.03 K/mm3 (0.00-0.23); BASOPHILS PERCENT AUTO 0 % (0-2); EOSINOPHILS ABSOLUTE AUTO 0.13 K/mm3 (0.00-0.68); EOSINOPHILS PERCENT AUTO 2 % (0-6); Hematocrit 33.9 % (37.0-53.0); Hemoglobin 10.6 g/dL (13.5-17.5); IMMATURE GRAN ABSOLUTE AUTO 0.02 K/mm3 (0.00-0.10); IMMATURE GRAN PERCENT AUTO 0 % (0-1); LYMPHOCYTES ABSOLUTE AUTO 1.98 K/mm3 (0.84-5.20); LYMPHOCYTES PERCENT AUTO 30 % (21-46); MONOCYTES ABSOLUTE AUTO 0.60 K/mm3 (0.16-1.47); MONOCYTES PERCENT AUTO 9 % (4-13); Mean Corpuscular HGB Conc 31.3 g/dL (31.5-36.5); Mean Corpuscular Volume 94 fL (80-100); NEUTROPHILS ABSOLUTE AUTO 3.91 K/mm3 (1.96-9.15); NEUTROPHILS PERCENT AUTO 59 % (41-73); NRBC ABSOLUTE 0.00 K/mm3 (0.00-0.02); NRBC Auto 0.0 /100 WBC (0.0-0.2); Platelet Count 158 K/mm3 (150-400); RDW Coefficient Variation 15.5 % (11.7-14.2); RDW Standard Deviation 53.3 fL (35.1-46.3)
[2025-03-20 08:16] LABS: Alanine Aminotransfer (ALT/SGP 31.0 U/L (12-78); Albumin, Blood 3.1 g/dL (3.4-5.0); Albumin/Globulin Ratio 0.8 (0.8-1.8); Anion Gap 7.0 mmol/L (3-11); Aspartate Aminotrans (AST/SGOT 24.0 U/L (12-37); Bilirubin, Total 0.6 mg/dL (0.1-1.0); Blood Urea Nitrogen 15.0 mg/dL (8-24); CO2, Blood 30.0 mmol/L (21-32); Calcium, Blood 8.5 mg/dL (8.5-10.1); Chloride, Blood 104.0 mmol/L (98-108); Creatinine, Blood 1.08 mg/dL (0.60-1.20); Globulin, Blood 4.1 g/dL (2.2-4.0); Glucose, Blood 127.0 mg/dL (70-99); Potassium, Blood 4.3 mmol/L (3.5-5.5); Sodium, Blood 137.0 mmol/L (136-145); Total Protein, Blood 7.2 g/dL (6.4-8.2)
[2025-03-20] MEDS ORDERED: Labetalol HCL 5 MG/ML 20MLVIAL IV ONE (08:25)
[2025-03-20] MEDS ORDERED: Labetalol HCL 5 MG/ML 4ML Injection (Single Dose) IV ONE (08:30)
[2025-03-20 08:35] LABS: Influenza A, PCR NEGATIVE (NEGATIVE); Influenza B, PCR NEGATIVE (NEGATIVE); Resp Syncytial Virus, PCR NEGATIVE (NEGATIVE); SARS-Cov-2 (COVID-19) PCR, MMC NEGATIVE (NEGATIVE)
[2025-03-20] MEDS ORDERED: Heparin Sodium 1000 Units/ML 10ML MDV ONE (09:11)
[2025-03-20] MEDS ORDERED: Verapamil HCL 2.5 MG/ML 2ML Injection ONE (09:11)
[2025-03-20] MEDS ORDERED: NS 1,000 ML IV ONE ×2 (09:11→09:15)
[2025-03-20] MEDS ORDERED: NS 250 ML IV ONE (09:11)
[2025-03-20] MEDS ORDERED: Midazolam HCl 1MG / ML 2ML Vial ONE (09:14)
[2025-03-20] MEDS ORDERED: FentaNYL Citrate 50 MCG/ML 2 ML Injection ONE (09:14)
[2025-03-20] MEDS ORDERED: DiphenhydrAMINE HCl 50 MG/ML 1ML Vial ONE (09:27)
[2025-03-20] MEDS ORDERED: HydrALAZINE HCl 20 MG / ML 1ML Vial ONE (11:50)
[2025-03-20 12:34] LABS: Anti-Xa UFH, PHA Monitoring 0.33 IU/mL; Prothrombin Time Results 12.9 Sec (9.7-11.5)
[2025-03-20] MEDS ORDERED: LORazepam 2 MG/ML 1ML Injection ONE (12:46)
--- NOTE | 2025-03-20 13:58 | NUR ---
ADMIT PT ARRIVED TO ICU 8 FROM NIPPLE THREADER. PT ALERT AND ORIENTED, BUT BECAME MORE ANXIOUS HE HAD TO LAY FLAT. PT HAS BILATERAL GROIN ACCESS SITES AND A L RADIAL ACCESS SITE. THE RADIAL ACCESS SITE WAS A LITTLE OOZY WHEN HE FIRST ARRIVED, BUT THEN BEGAN DRIPPING BLOOD. MANUAL PRESSURE HELD. ATTEMPTED TO REPLACE TR BAND, BUT UNABLE TO ACHIEVE HEMOSTATSIS OF SITE. NIPPLE THREADER RN AND TECH CALLED AND CAME TO BEDSIDE TO ASSIST WITH TR BAND. DURING THIS, PT BECAME VERY ANXIOUS, INSISTING HE NEEDED TO SIT UP TO BREATHE. PT REPEATEDLY EDUCATED ON THE DANGERS OF SITTING OF UP WITH HIS BILATERAL GROIN ACCESS SITES AND REASSURANCES PROVIDED THAT HIS SPO2 WAS 100%. FAN PLACED IN PT FACE TO HELP, BUT PT KEPT TRYING TO GET OOB. DR. MERCADO CALLED AND GAVE ORDER FOR ATIVAN. IT WAS GIVEN AND PT THEN BECAME CONFUSED AND UNDIRECTABLE, WHILE STILL TRYING TO SIT UP. DR. MERCADO NOTIFIED AGAIN AND ORDER RECEIVED FOR PRECEDEX. WITH THE PRECEDEX GTT, PT FINALLY SETTLED AND RELAXED. RT NOTIFIED TO ASSIST DURING THIS TIME WELL AND PT WAS PLACED ON BIPAP TO HELP WITH HIS FEELING OF DYSPNEA. DR. MERCADO CAME TO THE BEDSIDE AND GAVE ORDERS FOR LASIX. MALE PUREWICK PLACED AND THEN LASIX GIVEN. NITRO GTT STARTED WHEN PT FIRST ARRIVED AND IS BEING TITRATED TO SBP <160.
[2025-03-20 16:47] LABS: pH Blood Venous 7.29 (7.34-7.37)
--- NOTE | 2025-03-20 16:55 | NUR ---
SHIFT SUMMARY PT REQUIRED PRECEDEX TO LAY STILL AFTER HIS PROCEDURE. AROUND 1445 PT'S BP DROPPED WITH MAP STAYING IN THE MID 50S. NITRO AND PRECEDEX STOPPED. AFTER AN HOUR, MAP WAS STILL IN THE 50S SO DR. MERCADO NOTIFIED AND ORDER FOR LEVOPHED. ALSO ORDER FOR VBG RT HAS BEEN CONCERNED ABOUT BREATHING PATTERN. BLADDER SCAN COMPLETED WELL SINCE PT HADN'T VOIDED AND IT SHOWED OVER 700ML. STRAIGHT CATH PERFORMED PER PROTOCOL AND WITH THAT PT STARTED TO WAKE UP MORE AND BP CAME UP. SBP NOW IN 100S. PT IS STILL CONFUSED, NEEDING FREQUENT REDIRECTION HE STILL TRIES TO GET OOB. BED ALARM ON. STARTED RELEASING AIR FROM TR BAND. 6ML RELEASED SO FAR WITHOUT ANY OZZING OR HEMATOMA. SITE UNDER TR BAND IS VERY BRUISED. ARM SPLINT IN PLACE. PT'S NEPHEW STOPPED BY AND WAS UPDATED ON PLAN OF CARE.
--- NOTE | 2025-03-20 22:50 | NUR ---
DR SIOMARA CARLISLE NOTIFIED OF PT REPORTS OF ANXIETY, RESTLESSNESS, & MILD PAIN c BREATHING. MD ORDER MEDICATION R/T ANXIETY & PAIN. AWARE OF PT CURRENTLY NPO S/P HOUSE WORKER GENERAL SEDATION. PT NOW ALERT & MD CLEARED PT FOR PO INTAKE FOR MEDICATION.
[2025-03-20] MEDS ORDERED: FLU VACC TS2025(65UP)/MF59C/PF 45 MCG/0.5 ML SYRINGE IM ONE (23:20)
[2025-03-21] VITALS (42 sets, daily range): BP systolic 115–183; BP diastolic 41–133
[2025-03-21] MEDS ORDERED: FentaNYL Citrate 50 MCG/ML 2 ML Injection IV PRN (00:35)
--- NOTE | 2025-03-21 01:05 | NUR ---
DR STRINGER ATTEMPT TO CALL DR. GALLARDO @ 0020 & 0024 c VOICEMAIL LEFT. NO RETURN CALL FROM DR. DR LAWSON THEN CALLED @ 0034 R/T PT CONDITION. PT REPORTS DULL CEST PAIN 5/10, RADIATING DOWN R ARM & DIFFICULTY BREATHING S/P RAISING HOB. MD ORDERED SL NITRO Q5MIN x3 & FENTANYL PER EMAR R/T PAIN. PT GIVEN 3 DOSES OF NITRO PER EMAR. S/P 3RD DOSE, PT REPORTS RELIEF OF CHEST PAIN. HR 90-100s, MAP >65, O2 SAT >93% ON 2L O2 VIA NC. S/P FENT ADMINISTRATION, PT REPORTS EASE OF BREATHING.
[2025-03-21 03:10] LABS: BASOPHILS ABSOLUTE AUTO 0.03 K/mm3 (0.00-0.23); BASOPHILS PERCENT AUTO 0 % (0-2); EOSINOPHILS ABSOLUTE AUTO 0.00 K/mm3 (0.00-0.68); EOSINOPHILS PERCENT AUTO 0 % (0-6); Hematocrit 34.6 % (37.0-53.0); Hemoglobin 11.0 g/dL (13.5-17.5); IMMATURE GRAN ABSOLUTE AUTO 0.02 K/mm3 (0.00-0.10); IMMATURE GRAN PERCENT AUTO 0 % (0-1); LYMPHOCYTES ABSOLUTE AUTO 0.95 K/mm3 (0.84-5.20); LYMPHOCYTES PERCENT AUTO 10 % (21-46); MONOCYTES ABSOLUTE AUTO 0.60 K/mm3 (0.16-1.47); MONOCYTES PERCENT AUTO 6 % (4-13); Mean Corpuscular HGB Conc 31.8 g/dL (31.5-36.5); Mean Corpuscular Volume 96 fL (80-100); NEUTROPHILS ABSOLUTE AUTO 7.84 K/mm3 (1.96-9.15); NEUTROPHILS PERCENT AUTO 83 % (41-73); NRBC ABSOLUTE 0.00 K/mm3 (0.00-0.02); NRBC Auto 0.0 /100 WBC (0.0-0.2); Platelet Count 178 K/mm3 (150-400); RDW Coefficient Variation 15.9 % (11.7-14.2); RDW Standard Deviation 55.6 fL (35.1-46.3)
[2025-03-21 03:34] LABS: Alanine Aminotransfer (ALT/SGP 29.0 U/L (12-78); Albumin, Blood 2.9 g/dL (3.4-5.0); Albumin/Globulin Ratio 0.7 (0.8-1.8); Anion Gap 15.0 mmol/L (3-11); Aspartate Aminotrans (AST/SGOT 42.0 U/L (12-37); Bilirubin, Total 0.6 mg/dL (0.1-1.0); Blood Urea Nitrogen 23.0 mg/dL (8-24); CO2, Blood 26.0 mmol/L (21-32); Calcium, Blood 8.6 mg/dL (8.5-10.1); Chloride, Blood 99.0 mmol/L (98-108); Creatinine, Blood 1.48 mg/dL (0.60-1.20); Globulin, Blood 4.2 g/dL (2.2-4.0); Glucose, Blood 322.0 mg/dL (70-99); Potassium, Blood 4.8 mmol/L (3.5-5.5); Sodium, Blood 135.0 mmol/L (136-145); Total Protein, Blood 7.1 g/dL (6.4-8.2)
--- NOTE | 2025-03-21 06:31 | NUR ---
SHIFT SUMMARY A&O x3, PT ORIENTED TO SELF, PLACE, MIN SITUATION, NOT ORIENTED TO TIME. HR NSR 80s - SINUS TACH - AFIB. MAP >65. PT REPORT CHEST PAIN APPROX 0230, NITRO GIVEN PER EMAR & PT REPORT RELIEF OF CHEST PAIN. O2 SAT >95% ON 2L O2 VIA NC, BIPAP PLACED APPROC 033/7 @ 35% FIO2, PT TOLERATE WELL, SPO2 >98%. PT ABLE TO SLEEP ONCE BIPAP PLACED. TEG IN USE OVER TR BAND ACCESS SITE, SEVERE BRUISING, ARM BOARD IN USE. PUREWICK IN PLACE c YELLOW URINE OUTPUT. PT ATTEMPT BM ON BSC c NO OUTPUT. TOLERATING LIQUID PO INTAKE. PT FOLLOWS COMMANDS. CALL LIGHT IN REACH, BED ALARM IN USE, WILL REPORT TO DAY RN.
[2025-03-21] MEDS ORDERED: Insulin Human Lispro 100 Units/ML 3ML Syringe SC SCH ×2 (07:30→12:00)
[2025-03-21 08:33] LABS: pH Blood Venous 7.29 (7.34-7.37)
[2025-03-21] MEDS ORDERED: Fluticasone 0.05% Nasal Spray SCH (09:00)
[2025-03-21] MEDS ORDERED: Insulin NPH 100 Unit / ML 10ML Vial SC ONE (09:00)
--- NOTE | 2025-03-21 11:15 | NUR ---
Spiritual Care Visit. Pt. is awake and sitting up in a chair when he welcomes my visit. Pt. is pleasant. Facilitated a life review and listen with interest and empathy. Pt. varbalizes that he lives locally with his sister. Pt. displays evidence of being aware and engaged. Prayed with the Pt. Pt. verbalized gratitude fo rthe spiritual care visit and welcomed this barmaid to return.
--- NOTE | 2025-03-21 12:35 | NUR ---
REASSESSMENT PT HAS BEEN ALERT AND ORIENTED TO PERSON AND PLACE THIS MORNING. FOLLOWING DIRECTIONS AND COOPERATIVE. HE HAS BEEN UP TO THE RECLINER TWICE. HE GOES BETWEEN HIS NC AND BIPAP DEPENDING ON IF HE FEELS DYSPNEIC. SPO2 REMAINS IN THE 90S EITHER ON THE 2L/NC OR BIPAP WITH FIO2 40%. HE HAS GONE BETWEEN AFIB AND SIT IN THE 80S. UP TO LOW 100S WITH ACTIVITY. 3 LARGE BMS THIS MORNING. USING PUREWICK FOR VOIDING. EATING MORE THAN 50% OF HIS MEALS. PT'S SISTER WAS UPDATED BY TELEPHONE.
--- NOTE | 2025-03-21 17:30 | NUR ---
SHIFT SUMMARY PT HAS REMAINED ALERT AND ORIENTED TO PERSON AND PLACE. CONTINUES TO GO BETWEEN THE BIPAP AND NASAL CANNULA FOR FEELINGS OF DYSPNEA. LUNGS ARE CLEAR, DIM IN THE BASES. HEARING CARE PRACTITIONER COUGH. DENIED CHEST PAIN THROUGHOUT THE DAY. HR HAS GONE BETWEEN AFIB AND SIT WITH RATE IN THE 60 AND 80S THIS AFTERNOON. VOIDING USING THE PUREWICK. MULTIPLE BMS TODAY. EATING WELL.
[2025-03-21] MEDS ORDERED: Insulin Glargine 100 Unit/ML 3 ML SYR SC SCH (21:00)
[2025-03-21] MEDS ORDERED: Arginine/Glutamine/Calcium Hmb 1 Packet PO SCH (21:00)
[2025-03-22] VITALS (12 sets, daily range): BP systolic 102–175; BP diastolic 44–76
[2025-03-22 03:11] LABS: BASOPHILS ABSOLUTE AUTO 0.04 K/mm3 (0.00-0.23); BASOPHILS PERCENT AUTO 0 % (0-2); EOSINOPHILS ABSOLUTE AUTO 0.10 K/mm3 (0.00-0.68); EOSINOPHILS PERCENT AUTO 1 % (0-6); Hematocrit 32.4 % (37.0-53.0); Hemoglobin 10.3 g/dL (13.5-17.5); IMMATURE GRAN ABSOLUTE AUTO 0.03 K/mm3 (0.00-0.10); IMMATURE GRAN PERCENT AUTO 0 % (0-1); LYMPHOCYTES ABSOLUTE AUTO 2.33 K/mm3 (0.84-5.20); LYMPHOCYTES PERCENT AUTO 24 % (21-46); MONOCYTES ABSOLUTE AUTO 0.61 K/mm3 (0.16-1.47); MONOCYTES PERCENT AUTO 6 % (4-13); Mean Corpuscular HGB Conc 31.8 g/dL (31.5-36.5); Mean Corpuscular Volume 94 fL (80-100); NEUTROPHILS ABSOLUTE AUTO 6.51 K/mm3 (1.96-9.15); NEUTROPHILS PERCENT AUTO 68 % (41-73); NRBC ABSOLUTE 0.00 K/mm3 (0.00-0.02); NRBC Auto 0.0 /100 WBC (0.0-0.2); Platelet Count 193 K/mm3 (150-400); RDW Coefficient Variation 15.9 % (11.7-14.2); RDW Standard Deviation 54.8 fL (35.1-46.3)
[2025-03-22 03:12] LABS: pH Blood Venous 7.29 (7.34-7.37)
[2025-03-22 03:34] LABS: Alanine Aminotransfer (ALT/SGP 37.0 U/L (12-78); Albumin, Blood 3.0 g/dL (3.4-5.0); Albumin/Globulin Ratio 0.7 (0.8-1.8); Anion Gap 7.0 mmol/L (3-11); Aspartate Aminotrans (AST/SGOT 91.0 U/L (12-37); Bilirubin, Total 0.3 mg/dL (0.1-1.0); Blood Urea Nitrogen 42.0 mg/dL (8-24); CO2, Blood 32.0 mmol/L (21-32); Calcium, Blood 8.3 mg/dL (8.5-10.1); Chloride, Blood 102.0 mmol/L (98-108); Creatinine, Blood 1.74 mg/dL (0.60-1.20); Globulin, Blood 4.1 g/dL (2.2-4.0); Glucose, Blood 225.0 mg/dL (70-99); Potassium, Blood 3.8 mmol/L (3.5-5.5); Sodium, Blood 137.0 mmol/L (136-145); Total Protein, Blood 7.1 g/dL (6.4-8.2)
--- NOTE | 2025-03-22 06:22 | NUR ---
SHIFT SUMMARY PT ALERT, ORIENTED TO SELF & TIME. PT NOT ORIENTED TO PLACE, DATE, SITUATION. PT REQUIRES FREQUENT REDIRECTION, PT NOT USING CALL LIGHT THIS AM & CALLING OUT. BED ALARM IN USE R/T PT SAFETY. AFIB 60-80s, MAP >65. SPO2 >97% ON 3L O2 VIA NC. PT MIN TOLERATES BIPAP, SELF REMOVES IN LESS THAN AN HOUR, UNRECEPTIVE R/T BIPAP EDUCATION. TR BAND ACCCESS SITE TEG REPLACED THIS SHIFT R/T PT SELF REMOVAL. ARM BOARD IN PLACE. PUREWICK IN PLACE c YELLOW URINE OUTPUT. 1 PERSON ASSIST STNAD/PIVOT TO BSC. SMEAR BMs THIS SHFIT. TOLEATING PO INTAKE c FREQUENT SNACKS OVERNIGHT. CALL LIGHT IN REACH, BED IN LOWEST POSITION, WILL REPORT TO DAY RN.
--- NOTE | 2025-03-22 08:56 | NUR ---
ASSUMED CARE NOTE: ASSUMED CARE OF PT AT 0700, PT IS ALERT AND ORIENTED X 2, ABLE TO FOLLOW COMMANDS AND COMMUNICATES NEEDS. PT DENIES ANY PAIN AT THIS TIME. PT ON 3L OF OXYGEN VIA NC, SPO2 ABOVE 92% NO RESP DISTRESS NOTED. PT SOB WITH ACTIVITY, SPO2 MAINTAINS ABOVE 92% PT IN AFIB WITH HR 80'S, BP STABLE, DENIES CP. PT INCONTINENT OF URINE, PURWICK CHANGED. PT UP IN CHAIR FOR MEAL, 1 PERSON ASSIST, FWW. PLAN OF CARE ONGOING.
[2025-03-22] MEDS ORDERED: Isosorbide Mononitrate 60 MG TABCR PO SCH (09:00)
[2025-03-22] MEDS ORDERED: Morphine Sulfate 4 MG/1 ML Injection IV PRN (11:30)
[2025-03-22] MEDS ORDERED: Morphine Sulfate 20 MG/1ML 1 ML Oral Syringe PO PRN (11:35)
--- NOTE | 2025-03-22 13:32 | NUR ---
Pt and sister Alecia are in agreement for comfort care. Pt continues having SOB, and is not interested in pursuing further treatment. Pt's sister is at home ill today. This PC RN has been unable to reach her a 2nd time today to further discuss hospice logistics, but left a telephone message requesting return call. Received orders for comfort care from hospitalist.
--- NOTE | 2025-03-22 14:47 | NUR ---
ASSUMED CARE OF PATIENT FROM KASIA HUNTLEY.
--- NOTE | 2025-03-22 14:48 | NUR ---
RELINQUISHED CARE AT 1445. PT ALERT AND ORIENTED X 2- 3, ABLE TO FOLLOW COMMANDS AND COMMUNICATE NEEDS. SISTER (POA) CALLED WITH GOALS OF CARE, PT AND FAMILY WANT TO CONTINUE WITH COMFORT CARE MEASURES. PT ON 3L OF OXYGEN VIA NC FOR COMFORT, PT C/O SOB PRN ROXANOL GIVEN PER JUL. REPORT GIVEN TO
--- NOTE | 2025-03-22 17:29 | NUR ---
SHIFT SUMMARY PT REMAINS ON COMFORT CARE. SINCE ASSUMPTION OF CARE PT HAS BEEN ON 3LPM O2 VIA NC FOR COMFORT. UP TO CHAIR AND BACK TO BED, TOLERATING PO INTAKE WELL. PUREWICK IN PLACE c YELLOW URINE OUT. WILL CONTINUE TO MONITOR AND REPORT TO ONCOMING RN.
[2025-03-23] MEDS ORDERED: Morphine Sulfate 20 MG/1ML 1 ML Oral Syringe SL PRN (04:45)
--- NOTE | 2025-03-23 05:46 | NUR ---
SHIFT SUMMARY PT AWAKE DURING MOST OF NIGHT, VERY RESTLESS, ORIENTED TO SELF AND BUT VERY FORGETFUL OF PLACE AND SITUATION, NEEDS FREQ REORIENTING. ESPECIALLY UPON WAKING. MULT POSITION CHANGES AND GOING FROM BED TO RECLINER TO BED, A COUPLE OF BSC ATTEMPTS TO HAVE BM BUT ONLY GAS NOTED. C/O SOB WITH ANY EXERTION, MORPHINE GIVEN PRN FOR AIR HUNGER AND DISCOMFORT. DR LOCKETT UPDATED WITH RESTLESSNESS AND AIR HUNGER. MORPHINE DOSE ADJUSTED BY CATHRYN. CONTINUING TO MONITOR AND MEDICATING FOR COMFORT. WILL UPDATE DAY RN WITH ANY OUTSTANDING ISSUES AND PROBLEMS TO DATE.
[2025-03-23 08:57] VITALS: BP 141/45
--- NOTE | 2025-03-23 19:00 | NUR ---
Received report for KASIA Dejesus from Day KASIA Acevedo BSR completed. Family at bedside. Answered family questions to the best of our abilities. Comfort care cart ordered and did inform blunger loaderKASIA Araya of order. Cart will likely be delivered tomorrow per Jian. Patient sitting upright, obtunded at the moment. Breathing E/U w/ 4L O2 via NC.
--- NOTE | 2025-03-23 19:36 | NUR ---
FAMILY CONCERNS Family is in the room, nieces and nephew (Yosi); patient is quite obtunded. According to Yosi Xie, listed as "Person to Notify," it was understood between hospitalist and Alecia (Sister and Next of Kin) that patient would continue to received ALL meds including IV fluids until discharged to Hospice. Nursing Notify confirms to continue all meds until d/c to hospice. Cabrera OBRIEN was called and received T.O. to start D5 1/2 NS @ 125mls/hr.
[2025-03-23] MEDS ORDERED: D5W-1/2NS 1,000 ML IV SCH (19:40)
--- NOTE | 2025-03-23 22:55 | NUR ---
PROVIDER NOTIFIED OF PT'S FAMILY'S REQUEST FOR MORE FREQUENT BLOOD GLUCOSE MONITORING D/T LOW BLOOD SUGAR CONCERNS. PLACED ON Q6 BGC. ROXANOL TO BE HELD UNLESS "ABSOLUTELY NECESSARY" PER FAMILY'S REQUEST. PER PROVIDER CATHY, D5W1/2NS TO CONT RUNNING CONT INF W/ INSULIN ADMIN ORDERED ON EMAR.
--- NOTE | 2025-03-24 04:47 | NUR ---
PT PASSED AT 0300. VERIFIED BY MYSELF AND WOMEN'S SWIM COACHKASIA DUKE. PROVIDER DR. LOCKETT NOTIFIED BY WOMEN'S SWIM COACHKASIA MATAMOROS. FAMILY MEMBER LISTED PERSON TO NOTIFY, EDY PARNELL, NOTIFIED VIA PHONE CALL BY AUTHOR. MARKO FROM [facility] IN TO [employer]HEO[employer] ASSEMBLER PT. PT TRANSPORTED BY MARKO ALONG W/ PT'S BELONGINGS (CLOTHING).
== END 2025-03-24 04:30 ==
LOC: ER 07:21 → ICUE 07:22 → ER 09:08 → ICUE 09:34 → MEDS 03-23 18:11
PROVIDERS: Emergency Medicine; ADMIT Family Medicine
PROC: B2111ZZ Fluoroscopy of Multiple Coronary Arteries using Low Osmolar Contrast (ICD-10-PCS; principal; 2025-03-20)
PROC: 3E033XZ Introduction of Vasopressor into Peripheral Vein, Percutaneous Approach (ICD-10-PCS; 2025-03-20)
PROC: 5A09457 Assistance with Respiratory Ventilation, 24-96 Consecutive Hours, Continuous Positive Airway Pressure (ICD-10-PCS; 2025-03-20)
DX: I21.4 Non-ST elevation (NSTEMI) myocardial infarction (principal); I50.23 Acute on chronic systolic (congestive) heart failure; J96.02 Acute respiratory failure with hypercapnia; J96.21 Acute and chronic respiratory failure with hypoxia; I13.0 Hypertensive heart and chronic kidney disease with heart failure and stage 1 through stage 4 chronic kidney disease, or unspecified chronic kidney disease; I48.20 Chronic atrial fibrillation, unspecified; J44.9 Chronic obstructive pulmonary disease, unspecified; N18.2 Chronic kidney disease, stage 2 (mild); E11.22 Type 2 diabetes mellitus with diabetic chronic kidney disease; Z66 Do not resuscitate; Z51.5 Encounter for palliative care; D63.1 Anemia in chronic kidney disease; E11.42 Type 2 diabetes mellitus with diabetic polyneuropathy; E78.5 Hyperlipidemia, unspecified; E11.65 Type 2 diabetes mellitus with hyperglycemia; F03.A0 Unspecified dementia, mild, without behavioral disturbance, psychotic disturbance, mood disturbance, and anxiety; I25.10 Atherosclerotic heart disease of native coronary artery without angina pectoris; L89.152 Pressure ulcer of sacral region, stage 2; I25.2 Old myocardial infarction; G47.33 Obstructive sleep apnea (adult) (pediatric); I95.89 Other hypotension; Z98.42 Cataract extraction status, left eye; Z95.1 Presence of aortocoronary bypass graft; Z98.41 Cataract extraction status, right eye; Z91.041 Radiographic dye allergy status; Z88.0 Allergy status to penicillin; Z88.1 Allergy status to other antibiotic agents; Z79.01 Long term (current) use of anticoagulants; Z79.4 Long term (current) use of insulin; Z79.51 Long term (current) use of inhaled steroids; Z79.84 Long term (current) use of oral hypoglycemic drugs; Z79.899 Other long term (current) drug therapy
CPT/HCPCS: 36415; 51701; 51702; 71046; 76937; 80053; 82803; 82947; 83880; 84484; 85025; 85520; 85610; 85730; 87637; 93005; 93010; 93308; 93321; 93455; 93880; 94660; 94760; 94762; 96374; 96375; 99152; 99153; 99285-25; A9270; C1769; C1894; G0378; J0360; J1200; J1644; J1720; J1815; J1938; J2060; J2250; J3010; J7030; J7042; J7050; Q9967